=== PATIENT | female | born 1975 | race Caucasian/White ===

== ENCOUNTER → 2020-07-08 15:23 | Outpatient (BNVA) | payer OTHER, SELFPAY | PROVIDERS: PCP Internal Medicine; Visit Provider Anesthesiology | DX: G89.4 Chronic pain syndrome (principal); M47.816 Spondylosis without myelopathy or radiculopathy, lumbar region; M79.7 Fibromyalgia | CPT/HCPCS: 99212 ==

== ENCOUNTER 2020-07-28 07:54 | Outpatient (RCR) | payer OTHER, SELFPAY | END 2020-07-28 23:55 | disposition home or self-care (01) | LOC: HO.PAOS 07:54 | PROVIDERS: Referring Provider Anesthesiology; Visit Provider Counselor Mental Health | DX: F33.2 Major depressive disorder, recurrent severe without psychotic features (principal) | CPT/HCPCS: 90791 ==

== ENCOUNTER → 2020-09-07 12:54 | Outpatient (BNVA) | payer OTHER, SELFPAY | PROVIDERS: PCP Internal Medicine; Visit Provider Orthopaedic Surgery | DX: R20.0 Anesthesia of skin (principal); R20.2 Paresthesia of skin | CPT/HCPCS: 99202 ==

== ENCOUNTER → 2020-09-27 10:58 | Outpatient (BNVA) | payer OTHER, SELFPAY | PROVIDERS: Visit Provider Orthopaedic Surgery | DX: G56.01 Carpal tunnel syndrome, right upper limb (principal) | CPT/HCPCS: 99212 ==

== ENCOUNTER 2020-10-01 06:03 | Day surgery (SDC) | payer OTHER, SELFPAY ==
[2020-09-23 20:01] VITALS: BMI 30.1
--- NOTE | 2020-09-30 10:18 | HO.ANESPROP2 ---
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) Meds Allergies Allergy/AdvReac Type Severity Reaction Status Date / Time gabapentin Allergy Unknown suicidal Verified 10/01/20 06:09 Home Medications Medication Instructions Recorded Confirmed Type fluoxetine 20 mg capsule 40 mg PO DAILY 06/18/20 09/23/20 History ibuprofen 400 mg PO Q6H 09/23/20 09/23/20 History Exam Exam Date and Time: September 30, 2020 1018 Height,Weight and Vital Signs: Height 5 ft 3 in Weight 77.111 kg Pertinent Lab Results Pertinent Lab Results: Laboratory Tests 09/14/20 15:54 WBC 11.2 H Hgb 12.0 Hct 36.1 L Plt Count 381 Assessment and Plan Assessment Anesthesia Assessment: Chart Reviewed Documented by User: Sally East 10/01/20 07:35 [facility] Past Medical History Medical History Anxiety Carpal tunnel syndrome Chronic pain syndrome 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) Meds Allergies Allergy/AdvReac Type Severity Reaction Status Date / Time gabapentin Allergy Unknown suicidal Verified 10/01/20 06:09 Home Medications Medication Instructions Recorded Confirmed Type fluoxetine 20 mg capsule 40 mg PO DAILY 06/18/20 09/23/20 History ibuprofen 400 mg PO Q6H 09/23/20 09/23/20 History Exam Airway Mallampati Class: I TM Dist: >3cm Loose/Missing/Broken Teeth: No Heart: RRR Lungs: CTA Assessment and Plan Assessment Anesthesia Assessment: Anesthesia Plan Discussed and Chart Reviewed Final Anesthetic Review NPO: Yes ASA Class: II Final Preanesthetic Review: Meds/Allgs Chart Reviewed, Consent Obtained/Reviewed and Anes Risks/Benef Reviewed Patient Risk: Low Anesthetic Plan Anesthetic Plan: MAC: Disposition: Standard PACU
--- NOTE | ~2020-10-01 | FL_ITS ---
EXAMINATION: XR FLUOROSCOPY WITH IMAGES CLINICAL INFORMATION: Lumbar spinal cord stimulation trial COMPARISON: None. TECHNIQUE: Fluoroscopy performed by Dr. Gildardo Penn. Fluoroscopy time: 8 minutes DAP: 28 mGycm2 Images: 5 FINDINGS: Images demonstrate leads projecting over the lower thoracic spinal canal. FL/FL guidance in OR IMPRESSION: Fluoroscopy guidance for spinal cord stimulation trial.
[2020-10-01 06:31] VITALS: BP 118/72; PULSE 77; RESP 16; TEMP 36.3; O2SAT 97
[2020-10-01] MEDS: Lactated Ringers 1,000 ML 100 ML IVCONT (06:32)
--- NOTE | 2020-10-01 07:24 | MHC.SHP ---
Pre-Procedural Eval Section A The patient is an INPATIENT: No Changes since office visit: Yes Patient answered all questions The History & Physical has been completed within 30 days and I have reviewed it.: No Section B Chief Complaint: Spondylosis without myelopathy,Chronic Pain Details of Present Illness: as above Relevant Family History (Specify if Yes): No Relevant Social History: None Present Medications: None Medical History: No relevant PMH History of Previous Operations: No relevant previous surgery Allergies: Allergies Allergy/AdvReac Type Severity Reaction Status Date / Time gabapentin Allergy Unknown suicidal Verified 10/01/20 06:09 Review of Systems Sugical H&P ROS: Negative: Cardiovascular, Respiratory, Neurological, Psychiatric, Hem-Onc, Allergic/Immunologic, Gastrointestinal, Genitourinary, Musculoskeletal, Integumentary, Endocrine and Eyes/Ears/Nose/Throat and Yes, Specify: Constitution (obesity) Exam Surgical H&P Exam: Normal: HEENT, Normal: Heart, Normal: Lungs, Normal: Extremities, Normal: Abdomen, Normal: Skin and Normal: Neurological Plan Diagnosis/Plan: Unchanged I have reviewed the history and physical and performed a pertinent physical examination on my patient. No changes have occurred unless specified.
[2020-10-01 09:05] VITALS: BP 106/72; PULSE 73; RESP 14; TEMP 36.1; O2SAT 100
--- NOTE | 2020-10-01 09:05 | P.BOP_ITS ---
Brief Operative Note Date of Service: 10/01/20 Pre-op diagnosis: Spondylosis lumbar spine Post-op diagnosis: same Procedure: Trial of spinal cord stimulator [employer] Implants: Temporary leads 2. Surgeon: Gildardo Penn MD Anesthesia: MAC Estimated blood loss (mL): 10 Pathology: none sent Condition: stable Disposition: PACU
[2020-10-01 09:20] VITALS: BP 101/63; PULSE 58; RESP 18; TEMP 36.3; O2SAT 98
--- NOTE | 2020-10-01 09:44 | PC.NURSE ---
rep at bedside programing patients trial pain stim device. patient awake alert skin pw&d dressing d&i.
--- NOTE | 2020-10-01 12:31 | HO.POSTANES ---
Post Anesthesia Evaluation Post Anesthesia Evaluation Vital Signs: Vital Signs Temp Pulse Resp BP Pulse Ox 10/01/20 09:20 97.3 F 58 18 101/63 98 10/01/20 09:05 97 F 73 14 106/72 100 10/01/20 06:31 97.3 F 77 16 118/72 97 Anesthesia: Monitored Mental Status: Awake Pain Control: Satisfactory Nausea/Vomiting: None Hydration: Adequate Anesthesia-Related Issues: No Anes. Related Issues
--- NOTE | 2020-10-01 14:50 | W.PM.OPN ---
Operative Note Operative Note Date of Service: 10/01/20 Narrative: After obtaining informed consent patient was brought to the operating room, SHE was positioned prone on operating table, [employer] [employer] monitors were applied and patient was deeply sedated. The patient was taken inside of the operating room where she was positioned prone operating table. Time-out was performed delineating correct site, side, the nature of the procedure, patient's allergy, preoperative antibiotic if needed. All operating room staff was participating in OR time-out procedure. Patient's entire back was prepped with ChloraPrep twice and draped with full body fenestrated drape. Sterilely draped C-arm was brought over operating field and sqare picture of T12 L1 L2 vertebrae as were demonstrated on the screen. Attention FIRST was concentrated on the left L1-L2 epidural interspace. The location of the projection of the right pedicle center of the _ L3 vertebra was found on the skin using C-arm. This location was injected with mixture of lidocaine 2% and Marcaine 0.5% 5 cc. After that 11 blade was used to make a charles on the skin. Ten cm 14 gauge curved introducer epidural needle was inserted through the charles and advanced to L1-L2 epidural interspace. The advancement of the needle was performed on anterior posterior and lateral views. Guitar wire and loss of resistance technique were used to locate epidural space. When guitar wire was spread in the epidural fashion, epidural lead was inserted through the skin and it was advanced to T8 position SLIGHTLY RIGHT OF THE MIDLINE. After that location of the projection of the LEFT pedicle center of the L3 vertebra was found on the skin using C-arm. This location was injected with mixture of lidocaine 2% and Marcaine 0.5% 5 cc. After that 11 blade was used to make a charles on the skin. Ten cm 14 gauge curved introducer epidural needle was inserted through the charles and advanced to L1-L2 epidural interspace. The advancement of the needle was performed on anterior posterior and lateral views. Guitar wire and loss of resistance technique were used to locate epidural space. When guitar wire was spread in the epidural fashion, epidural lead was inserted through the needle and advanced to the T8 position slightly left to the midline. At this moment patient was awaken and the epidural leads were connected to the testing device. The patient reported stimulation corresponding to her pain. After satisfactory position of the leads were established the needles were withdrawn, the stylette wires were removed from the epidural leads. The anchoring devices were dislodged on the leads and advanced to the level of the skin. The anchoring devices were sutured with two 0-0 silk sutures to the skin of the patient. The leads were connected to testing device. Bacitracin ointment was applied to the entrance point of bilateral needles. Sterile dressing was applied to the patient's back. The testing device was also glued to the patient's back. Upon completion of the procedure the patient was taken to PACU where SHE recovered and UNEVENTFULLY, SHE WENT HOME WITHOUT IMMEDIATE COMPLICATIONS. Breast [place] Node Biopsy Substrate(s) used for sentinel node biopsy in the non-neoadjuvant setting: [facility]. - Synoptic Notes Breast [place] Node Biopsy Substrate(s) used for sentinel node biopsy in the non-neoadjuvant setting: Shane
== END 2020-10-01 10:51 ==
LOC: HO.SSS 06:04
PROVIDERS: PCP Internal Medicine; Visit Provider Anesthesiology
PROC: (CPT 63650; principal; 2020-10-01 07:30)
DX: M47.816 Spondylosis without myelopathy or radiculopathy, lumbar region (principal); G89.4 Chronic pain syndrome; M79.7 Fibromyalgia; F32.9 Major depressive disorder, single episode, unspecified; I73.00 Raynaud's syndrome without gangrene; Z79.899 Other long term (current) drug therapy; Z88.8 Allergy status to other drugs, medicaments and biological substances
CPT/HCPCS: 63650 ×2; C1778; C1897; J0690; J2250; J3010

== ENCOUNTER → 2020-10-07 11:33 | Outpatient (BNVA) | payer OTHER, SELFPAY | PROVIDERS: PCP Internal Medicine; Visit Provider Anesthesiology | DX: M47.816 Spondylosis without myelopathy or radiculopathy, lumbar region (principal); M47.819 Spondylosis without myelopathy or radiculopathy, site unspecified; M79.7 Fibromyalgia; G89.4 Chronic pain syndrome | CPT/HCPCS: 99212 ==

== ENCOUNTER 2020-10-15 14:27 | Outpatient (REF) | payer OTHER, SELFPAY ==
--- NOTE | ~2020-10-15 | MR_ITS ---
EXAMINATION: MR LUMBAR SPINE WITHOUT CONTRAST CLINICAL INFORMATION: 44-year-old with low back pain and bilateral lumbar radicular symptoms. COMPARISON: 07/01/2018 outside MRI report. Images not currently available. TECHNIQUE: MRI of the lumbar spine was obtained using routine sequences without contrast. FINDINGS: Coronal Alignment:?Normal. Sagittal Alignment:?Normal. Lumbosacral Junction:?Normal. Vertebral Bodies: Normal height. Bone Marrow: No significant bone marrow replacement or bone marrow edema. Conus Medullaris:?Terminates at L1.?Morphology and signal is normal. Intradural Nerve Roots: Within normal limits. L5-S1: Disc space height is well maintained with disc desiccation consistent with disc degenerative change, with minimal type II marrow signal changes along the endplates. There is mild anterolateral spondylosis with a left paravertebral disc osteophyte complex and there is a mild degree of disc bulging slightly asymmetric to the left with a superimposed shallow broad-based central disc protrusion with a central transverse annular fissure. This contacts the right S1 nerve root sleeve without nerve root compression or displacement with no significant thecal sac deformity. There is mild facet hypertrophic change bilaterally and there is [id number] left-sided neural foraminal narrowing without neural impingement. L4-L5: Disc space height and signal are well maintained. There is a tiny inferior foraminal disc protrusion on the left without neural impingement. There is no significant facet arthrosis, canal, or neuroforaminal stenosis. The remaining intervertebral disc space heights and signal are well maintained with no significant disc bulge or herniation and no significant spondylosis, facet arthrosis, canal or neuroforaminal stenosis. Paraspinal/Retroperitoneal: The visualized paravertebral soft tissues appear unremarkable. MR/MR lumbar spine wo con IMPRESSION: 1. Discogenic degenerative changes at L5-S1 with spondylolysis at this level, disc bulging and a central disc protrusion which abuts the right L4 nerve root sleeve. [id number] left-sided neural foraminal narrowing also noted with mild facet arthrosis. 2. Tiny left-sided foraminal disc protrusion at L4-L5 without neural impingement.
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
== END 2020-10-15 14:28 | disposition home or self-care (01) ==
LOC: HO.MRI 14:27
PROVIDERS: Visit Provider Anesthesiology
DX: M47.816 Spondylosis without myelopathy or radiculopathy, lumbar region (principal); M47.819 Spondylosis without myelopathy or radiculopathy, site unspecified
CPT/HCPCS: 72148

== ENCOUNTER → 2020-10-25 09:00 | Outpatient (BNVA) | payer OTHER, SELFPAY | PROVIDERS: PCP Internal Medicine; Visit Provider Nurse Practitioner Family | DX: M47.816 Spondylosis without myelopathy or radiculopathy, lumbar region (principal); M47.819 Spondylosis without myelopathy or radiculopathy, site unspecified | CPT/HCPCS: 99212 ==

== ENCOUNTER → 2020-11-02 09:33 | Outpatient (BNVA) | payer OTHER, SELFPAY | PROVIDERS: PCP Internal Medicine; Visit Provider Physician Assistant | DX: G56.01 Carpal tunnel syndrome, right upper limb (principal) | CPT/HCPCS: 99212 ==

== ENCOUNTER 2020-11-11 13:30 | Day surgery (SDC) | payer OTHER, SELFPAY ==
[2020-11-10 10:00] VITALS: BMI 28.3
[2020-11-11 14:07] VITALS: BP 111/70; PULSE 73; RESP 18; TEMP 36.6; O2SAT 98
--- NOTE | 2020-11-11 15:27 | P.OP_ITS ---
Operative Note Operative Note Date of Service: 11/11/20 Narrative: Preop diagnosis: 1. Right Carpal tunnel syndrome Postop diagnosis: 1. Right Carpal tunnel syndrome Procedure: 1. Right Carpal tunnel release Surgeon: Liliana Still MD Anesthesia: local block using 1% lidocaine with epinephrine Findings: Thickened transverse carpal ligament. EBL: Less than 5 mL Specimens: None Complications: None Disposition: Brought to recovery room in stable condition Plan: Follow-up for 7-10 days for wound check and suture removal Indications: The patient is a 45 years old, with right carpal tunnel syndrome that has been unresponsive to nonoperative management. The risks and benefits of operative treatment including but not limited to risk of damage to blood vessels, nerves, tendons, infection, persistent pain, persistent symptoms, or possible need for additional surgery were discussed with the patient and the patient wishes to proceed with surgery. Procedure: Once consent was obtained a local block was performed using a combination of 1% lidocaine with epinephrine. The patient was then brought back to the operating suite and placed on the operative table in supine position. A tourniquet was applied to the proximal aspect of the right upper extremity and the limb was prepped and draped in a standard surgical fashion. Once assured that we had a good block, a 1.5 cm longitudinal incision was made centered over the right carpal tunnel. The incision was made through the skin to the subcutaneous tissues using a #15 blade. Dissection was made down to the level of the transverse carpal ligament with care being taken to protect the palmar cutaneous nerve. Once the transverse carpal ligament was clearly visualized, a longitudinal incision was made in the transverse carpal ligament 1st using a #15 blade, then using tenotomy scissors under direct visualization. Care was taken to look for and protect the motor branch of the median nerve when seen in this area. Once satisfied with our carpal tunnel release the wound was copiously irr igated with normal saline and hemostasis was obtained with a brief period of local pressure. The skin edges were reapproximated with some 5.0 nylon suture material and a sterile dressing was applied. The patient appears to have tolerated the procedure well and with no complications. All digits were well vascularized at the conclusion of the case.
--- NOTE | 2020-11-11 15:27 | MHC.SHP ---
Pre-Procedural Eval Section B Chief Complaint: carpal tunnel syndrome Allergies: Allergies Allergy/AdvReac Type Severity Reaction Status Date / Time gabapentin Allergy Unknown suicidal Verified 11/11/20 14:24 Plan I have reviewed the history and physical and performed a pertinent physical examination on my patient. No changes have occurred unless specified.
[2020-11-11 16:40] VITALS: BP 108/73; PULSE 64; RESP 18; O2SAT 97
== END 2020-11-11 16:46 | disposition home or self-care (01) ==
PROVIDERS: PCP Internal Medicine; Visit Provider Orthopaedic Surgery
PROC: (CPT 64721; principal; 2020-11-11 14:30)
DX: G56.01 Carpal tunnel syndrome, right upper limb (principal); G89.4 Chronic pain syndrome; M79.7 Fibromyalgia; I73.00 Raynaud's syndrome without gangrene; F32.9 Major depressive disorder, single episode, unspecified; Z88.8 Allergy status to other drugs, medicaments and biological substances
CPT/HCPCS: 64721

== ENCOUNTER → 2020-11-22 08:21 | Outpatient (BNVA) | payer OTHER, SELFPAY | PROVIDERS: PCP Internal Medicine; Visit Provider Orthopaedic Surgery | DX: G56.01 Carpal tunnel syndrome, right upper limb (principal) | CPT/HCPCS: 99212 ==

== ENCOUNTER 2021-03-29 11:40 | Emergency (ER) | payer OTHER, SELFPAY ==
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
[2021-03-29 12:30] VITALS: BP 148/82; PULSE 73; RESP 18; TEMP 36.8; O2SAT 98; BMI 28.3
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
[2021-03-29] MEDS: diazePAM 5 MG TABLET PO (13:30)
== END 2021-03-29 14:37 | disposition home or self-care (01) ==
PROVIDERS: Emergency Provider Emergency Medicine; PCP Internal Medicine
DX: S13.9XXA Sprain of joints and ligaments of unspecified parts of neck, initial encounter (principal); M54.2 Cervicalgia; R40.2410 Glasgow coma scale score 13-15, unspecified time; G44.309 Post-traumatic headache, unspecified, not intractable; V43.52XA Car driver injured in collision with other type car in traffic accident, initial encounter; Y93.9 Activity, unspecified; Y92.410 Unspecified street and highway as the place of occurrence of the external cause; Y99.9 Unspecified external cause status; Z79.899 Other long term (current) drug therapy
CPT/HCPCS: 70450; 72125; 99283

== ENCOUNTER 2021-04-15 14:11 | Outpatient (REF) | payer OTHER, SELFPAY ==
--- NOTE | ~2021-04-15 | MM_ITS ---
EXAMINATION: MM SCREENING DIGITAL BREAST TOMOSYNTHESIS, BILATERAL CLINICAL INFORMATION: Screening. Asymptomatic. The lifetime risk of breast cancer based on the Tyrer-Cuzick Model is 8%. COMPARISON: Mammography: 06/28/2018; targeted right breast ultrasound 07/04/2018 TECHNIQUE: Digital breast tomosynthesis is performed in both the craniocaudal and mediolateral oblique views along with computer-aided detection (CAD). Synthesized 2D images are generated from the tomosynthesis. FINDINGS: The breasts are heterogeneously dense, which may obscure small masses (ACR BI-RADS breast composition Category c). There are no significant masses, abnormal calcifications, or other abnormalities. There is a known cyst posterior upper outer right breast which is increased in size, currently approximately 1.8 x 1.4 cm compared with prior measurements 1.1 x 0.8 cm. The axilla and skin contours are unremarkable. There are no significant changes. MM/MM tomosynthesis screening BI IMPRESSION: 1. No mammographic evidence of malignancy. 2. Simple cyst posterior outer right breast increased in size since prior exam 2017. ASSESSMENT: BI-RADS 2: Benign RECOMMENDATION: Routine annual mammography screening. This patient's information was entered into a reminder system with a target due date for their next mammogram.
== END 2021-04-15 14:12 | disposition home or self-care (01) ==
LOC: HO.MAMMO 14:11
PROVIDERS: Visit Provider Internal Medicine
DX: Z12.31 Encounter for screening mammogram for malignant neoplasm of breast (principal)
CPT/HCPCS: 77063; 77067

== ENCOUNTER → 2021-04-20 14:55 | Outpatient (BNVA) | payer OTHER, SELFPAY | PROVIDERS: PCP Internal Medicine; Visit Provider Orthopaedic Surgery | DX: G56.01 Carpal tunnel syndrome, right upper limb (principal); M79.7 Fibromyalgia; M79.641 Pain in right hand; R20.0 Anesthesia of skin; R20.2 Paresthesia of skin | CPT/HCPCS: 99212 ==

== ENCOUNTER 2021-05-03 10:31 | Outpatient (REF) | payer OTHER, SELFPAY ==
--- NOTE | ~2021-05-03 | XR_ITS ---
EXAMINATION: XR KNEE, RIGHT CLINICAL INFORMATION: S89.91XA - Unspecified injury of right lower leg COMPARISON: None TECHNIQUE: Four views of the right knee. FINDINGS: There is no fracture or dislocation. No suprapatellar effusion. Hoffa's fat pad appears normal. There is no joint narrowing or erosive change. Bony mineralization is normal. No periostitis. XR/XR knee RT 4V IMPRESSION: Normal right knee.
== END 2021-05-03 10:32 | disposition home or self-care (01) ==
LOC: HO.HMGCX 10:31
PROVIDERS: PCP Internal Medicine; Visit Provider Internal Medicine
DX: Z13.89 Encounter for screening for other disorder (principal)
CPT/HCPCS: 73564

== ENCOUNTER 2021-06-28 13:12 | Outpatient (REF) | payer OTHER, SELFPAY ==
[2021-06-28 14:09] LABS: Hematocrit 35.7 % (37.0-47.0); Hemoglobin 11.8 g/dl (12.0-16.0); Mean Corpuscular HGB Conc 33.1 g/dl (31.0-35.0); Mean Corpuscular Hemoglobin 30.3 pg (27.0-33.0); Mean Corpuscular Volume 91.8 fL (80.0-98.0); Mean Platelet Volume 10.7 fL (9.4-12.3); Platelet Count 374 X10*3/uL (160-400); Red Blood Count 3.89 X10*6/uL (4.20-5.50); Red Cell Distribution Width 14.5 % (11.0-16.0); White Blood Count 10.9 X10*3/uL (4.8-10.8)
[2021-06-28 15:11] LABS: HCG Quantitative < 2 mIU/mL; TSH reflex Free T4 1.19 uIU/mL (0.32-4.0)
[2021-06-29 13:37] LABS: CT PCR NOT DETECTED (Not Detect.); NG PCR NOT DETECTED (Not Detect.)
[2021-07-01 02:17] LABS: HPV mRNA E6/E7 rflx Not Detected (Not Detected)
== END 2021-06-28 13:13 | disposition home or self-care (01) ==
LOC: HO.LAB 13:12
PROVIDERS: PCP Internal Medicine; Visit Provider Obstetrics & Gynecology
DX: N93.9 Abnormal uterine and vaginal bleeding, unspecified (principal); Z11.51 Encounter for screening for human papillomavirus (HPV)
CPT/HCPCS: 36415; 84443; 84702; 85027; 87491; 87591; 87624; 88142; 99202

== ENCOUNTER 2021-07-07 13:00 | Outpatient (RCR) | payer OTHER, SELFPAY ==
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
--- NOTE | 2021-07-08 11:38 | MHC.OT.DC ---
[address] [phone] F: [phone] Occupational Therapy Discharge Note Provider: Liliana Still Diagnosis: CARPAL TUNNEL SYNDROME, RIGHT UPPER LIMB Date of Surgery: 11/11/20 Date of Evaluation: 06/09/21 Date of Discharge: 07/07/21 Treatments to Date: 9 Cancellations to Date: No Shows to Date: Discharge Status: Patient Elected to Stop Recommend MD Follow-up Discharge Summary: Pt reports temporary improvement in pain with heat and massage only. Pt has been educated on gentle ther ex with plan for ex progression Reports she is reluctant to exercise due to fear of increased pain and does not plan to schedule further therapy No change noted. Electronically Signed By: Trang Barnard OT CHT CLT Reviewed/agree with student documentation: N/A Therapist: Please Sign and return to therapist, thank you for your referral.
== END 2021-07-08 11:30 | disposition home or self-care (01) ==
LOC: HO.OT 13:00
PROVIDERS: PCP Internal Medicine; Visit Provider Orthopaedic Surgery
DX: R20.0 Anesthesia of skin (principal); R20.2 Paresthesia of skin; G56.01 Carpal tunnel syndrome, right upper limb
CPT/HCPCS: 97035; 97110; 97140; 97166

== ENCOUNTER 2021-07-07 13:45 | Outpatient (REF) | payer OTHER, SELFPAY ==
--- NOTE | ~2021-07-07 | US_ITS ---
EXAMINATION: US PELVIS CLINICAL INFORMATION: Abnormal uterine and vaginal bleeding. COMPARISON: None TECHNIQUE: Ultrasound of the pelvis is performed using both transabdominal and transvaginal transducers along with Doppler. Transvaginal imaging is performed due to inadequate visualization transabdominally. FINDINGS: Uterus: The uterus is anteverted and measures 8.5 x 3.9 x 4.9 cm. The double wall endometrial thickness is 1 mm. The uterus is smooth in contour. There are several small cysts adjacent to the endometrium, the largest measuring 4 x 2 x 2 mm. There is a solitary 2 mm echogenic focus questionable for a calcification. No visible fibroid. There are nabothian cysts in the cervix. Adnexa: Both ovaries are visualized. There is normal color flow to the adnexa. There is no ovarian torsion. There is no pelvic ascites or fluid collection. Right ovary measures 2.3 x 2 x 2.1 cm. There is a small nonspecific echogenic focus that measures 6 x 4 x 5 mm. Left ovary measures 3.1 x 2.6 x 2.2 cm. US/US pelvic and transvaginal IMPRESSION: Normal-thickness endometrium. Small myometrial cysts adjacent to the endometrium which can be seen with adenomyosis. No visible fibroid seen.
== END 2021-07-07 13:46 | disposition home or self-care (01) ==
LOC: HO.US 13:45
PROVIDERS: Visit Provider Obstetrics & Gynecology
DX: N93.9 Abnormal uterine and vaginal bleeding, unspecified (principal)
CPT/HCPCS: 76830; 76856

== ENCOUNTER 2021-08-11 12:30 | Outpatient (REF) | payer OTHER, SELFPAY | END 2021-08-11 12:31 | disposition home or self-care (01) | LOC: HO.LAB 12:30 | PROVIDERS: Visit Provider Obstetrics & Gynecology | DX: N93.9 Abnormal uterine and vaginal bleeding, unspecified (principal) | CPT/HCPCS: 58100; 88305 ==

== ENCOUNTER 2021-08-18 10:20 | Outpatient (REF) | payer OTHER, SELFPAY ==
--- NOTE | 2021-08-18 | EMG_ITS ---
Bilateral median and ulnar motor and sensory studies were performed. Bilateral radial sensory studies were performed and paraspinal muscles were tested. IMPRESSION: [id number] right and mild left median neuropathy across carpal tunnel. MD MARILOU Cotton/JESSIE / [id number]
== END 2021-08-18 10:21 | disposition home or self-care (01) ==
LOC: HO.NEURO 10:20
PROVIDERS: Visit Provider Orthopaedic Surgery
DX: R20.2 Paresthesia of skin (principal); R20.0 Anesthesia of skin; G56.13 Other lesions of median nerve, bilateral upper limbs
CPT/HCPCS: 95886; 95911

== ENCOUNTER → 2021-09-01 10:17 | Outpatient (BNVA) | payer OTHER, SELFPAY | PROVIDERS: Visit Provider Obstetrics & Gynecology ==

== ENCOUNTER → 2021-09-27 15:08 | Outpatient (BNVA) | payer OTHER, SELFPAY | PROVIDERS: Visit Provider Obstetrics & Gynecology | DX: N93.9 Abnormal uterine and vaginal bleeding, unspecified (principal) | CPT/HCPCS: 99212 ==

== ENCOUNTER 2021-09-30 11:25 | Day surgery (SDC) | payer OTHER, SELFPAY ==
--- NOTE | 2021-09-29 10:23 | P.CONAN_ITS ---
Documented by User: Rhonda Moreno NP 09/29/21 10:24 HPI - Anesthesia Eval Consult details Narrative: 45yo F for Uterine Ablation w/Novasure PMFSH Active Problems Active Problems: All Active Problems (Updated 06/28/21 @ 13:37 by Conrado Valentin MD) Carpal tunnel syndrome of right wrist (Acute) Lumbar facet arthropathy (Acute) Numbness and tingling of right upper extremity (Acute) Right hand pain (Acute) Right knee injury (Acute) Dysfunctional uterine bleeding (Acute) Neuralgia (Acute) Abnormal uterine bleeding (AUB) (Acute) Leucocytosis (Chronic) Chronic pain syndrome (Acute) Fibromyalgia (Acute) Spondylosis without myelopathy or radiculopathy (Acute) Degenerative joint disease (DJD) of lumbar spine (Acute) Paresthesias in right hand (Acute) Depression, major, severe recurrence (Acute) Past Medical History Medical History Anxiety Carpal tunnel syndrome Chronic pain syndrome 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, major, severe recurrence Fibromyalgia Leucocytosis Numbness and tingling in both hands Panic attack Paresthesias in right hand Raynaud disease Spondylosis without myelopathy or radiculopathy Family History Family History Mother Mental health disorder Substance use disorder Surgical History Surgical History History of breast lump removal History of carpal tunnel surgery of right wrist History of tubal ligation Social History Social History Household Members: Spouse Housing: House Alcohol intake: never Patient Tobacco Use Status: Former Tobacco user Quit Date: 2019 Years Smoked: 30 years Patient Interested in Nicotine Replacement: No Second Hand Smoke Exposure: No Use of substances other than those prescribed or required for medical reasons: No Are you DNR?: No Advance Directives: No Advance Directives Information Provided: No Patient : No (hx tubal) Current occupational status: unemployed and disabled 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) Meds Allergies Allergy/AdvReac Type Severity Reaction Status Date / Time gabapentin Allergy Unknown suicidal Verified 09/30/21 11:58 Home Medications Medication Instructions Recorded Confirmed Last Taken Type ibuprofen 400 mg 400 mg PO Q6H 09/23/20 09/26/21 Unknown History tablet PRN acetaminophen 325 650 mg PO Q6H 10/25/20 09/26/21 Unknown History mg capsule PRN (Tylenol) Exam Exam Date and Time: September 29, 2021 1023 Pertinent Lab Results Pertinent Lab Results: Laboratory Tests 06/28/21 13:56 WBC 10.9 H Hgb 11.8 L Hct 35.7 L Plt Count 374 Assessment and Plan Assessment Anesthesia Assessment: Chart Reviewed Documented by User: Marla Perkins MD 09/30/21 12:07 PMFSH Past Medical History Medical History Anxiety Carpal tunnel syndrome Chronic pain syndrome 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, major, severe recurrence Fibromyalgia Leucocytosis Numbness and tingling in both hands Panic attack Paresthesias in right hand Raynaud disease Spondylosis without myelopathy or radiculopathy Family History Family History Mother Mental health disorder Substance use disorder Family history of problems with anesthesia: No Surgical History Surgical History History of breast lump removal History of carpal tunnel surgery of right wrist History of tubal ligation History of Problems with Anesthesia: No Social History Social History Household Members: Spouse Housing: House Alcohol intake: never Patient Tobacco Use Status: Former Tobacco user Quit Date: 2018 Years Smoked: 30 years Patient Interested in Nicotine Replacement: No Second Hand Smoke Exposure: No Use of substances other than those prescribed or required for medical reasons: No Are you DNR?: No Advance Directives: No Advance Directives Information Provided: No Patient : No (hx tubal) Current occupational status: unemployed and disabled 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) Meds Allergies Allergy/AdvReac Type Severity Reaction Status Date / Time gabapentin Allergy Unknown suicidal Verified 09/30/21 11:58 Home Medications Medication Instructions Recorded Confirmed Last Taken Type ibuprofen 400 mg 400 mg PO Q6H 09/23/20 09/26/21 Unknown History tablet PRN acetaminophen 325 650 mg PO Q6H 10/25/20 09/26/21 Unknown History mg capsule PRN (Tylenol) Exam Airway Mallampati Class: II TM Dist: >3cm Neck ROM: Full Assessment and Plan Assessment Anesthesia Assessment: Anesthesia Plan Discussed Final Anesthetic Review Family History of Problems with Anesthesia: No History of Problems with Anesthesia: No NPO: Yes ASA Class: II Final Preanesthetic Review: No Changes in Pt Med Stat, Meds/Allgs Chart Reviewed, Consent Obtained/Reviewed and Anes Risks/Benef Reviewed Patient Risk: Intermediate Procedure Risk: Low Anesthetic Plan Anesthetic Plan: GA Disposition: Standard PACU
[2021-09-30] VITALS (9 sets, daily range): BP systolic 98–145; BP diastolic 43–83; PULSE 58–89; RESP 17–20; TEMP 36.4–36.6; O2SAT 97–100; BMI 28.3
[2021-09-30 11:46] LABS: UPreg QC Valid YES; Urine Pregnancy NEGATIVE (NEGATIVE)
[2021-09-30] MEDS: Lactated Ringers 1,000 ML 100 ML IVCONT (12:01)
--- NOTE | 2021-09-30 12:48 | MHC.SHP ---
Pre-Procedural Eval Section A Date of Service: 09/30/21 The patient is an INPATIENT: No Changes since office visit: No Cold of Flu in the past 2 weeks, No New Medical Problems, No Changes in Medication and No Patient answered all questions The History & Physical has been completed within 30 days and I have reviewed it.: Yes Section B Chief Complaint: abnormal bleeding Allergies: Allergies Allergy/AdvReac Type Severity Reaction Status Date / Time gabapentin Allergy Unknown suicidal Verified 09/30/21 11:58 Plan Diagnosis/Plan: Unchanged I have reviewed the history and physical and performed a pertinent physical examination on my patient. No changes have occurred unless specified.
--- NOTE | 2021-09-30 14:08 | PM.OP ---
Brief Operative Note Date of Service: 09/30/21 Pre-op diagnosis: Abnormal uterine bleeding Post-op diagnosis: same Procedure: NovaSure Endometrial Ablation Surgeon: Conrado Valentin MD Anesthesia: MAC Was an Chief Steward/Stewardess used for this Procedure?: No Estimated blood loss (mL): 0 Pathology: none sent Condition: stable Disposition: PACU
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
[2021-09-30] MEDS: fentaNYL citrate/PF 100 MCG/2 ML VIAL 50 MCG IVPUSH (14:20)
[2021-09-30] MEDS: Acetaminophen 325 MG TABLET 650 MG PO (14:21)
[2021-09-30] MEDS: oxyCODONE HCl Immed Release 5 MG TABLET PO (14:21)
== END 2021-09-30 16:02 | disposition home or self-care (01) ==
PROVIDERS: Visit Provider Obstetrics & Gynecology
PROC: (CPT 58353; principal; 2021-09-30 13:20)
DX: N93.9 Abnormal uterine and vaginal bleeding, unspecified (principal); Z98.51 Tubal ligation status; G89.4 Chronic pain syndrome; M79.7 Fibromyalgia; I73.00 Raynaud's syndrome without gangrene; F33.2 Major depressive disorder, recurrent severe without psychotic features; M51.36 Other intervertebral disc degeneration, lumbar region; D72.829 Elevated white blood cell count, unspecified; Z79.899 Other long term (current) drug therapy; Z88.8 Allergy status to other drugs, medicaments and biological substances; Z87.891 Personal history of nicotine dependence
CPT/HCPCS: 58353; 81025; J1100; J2250; J2405; J3010

== ENCOUNTER → 2021-10-19 10:37 | Outpatient (BNVA) | payer OTHER, SELFPAY | PROVIDERS: PCP Internal Medicine; Visit Provider Obstetrics & Gynecology ==

== ENCOUNTER 2022-02-28 09:08 | Outpatient (REF) | payer MEDICARE, MEDICAID, SELFPAY ==
[2022-02-28 10:53] LABS: Hematocrit 39.1 % (37.0-47.0); Hemoglobin 12.9 g/dl (12.0-16.0); Mean Corpuscular Hemoglobin 30.5 pg (27.0-33.0); Mean Corpuscular Volume 92.4 fL (80.0-98.0); Mean Platelet Volume 11.4 fL (9.4-12.3); Platelet Count 374 X10*3/uL (160-400); Red Blood Count 4.23 X10*6/uL (4.20-5.50); Red Cell Distribution Width 13.8 % (11.0-16.0); White Blood Count 13.2 X10*3/uL (4.8-10.8)
== END 2022-02-28 09:09 | disposition home or self-care (01) ==
LOC: HO.LAB 09:08
PROVIDERS: PCP Internal Medicine; Visit Provider Obstetrics & Gynecology
DX: N93.9 Abnormal uterine and vaginal bleeding, unspecified (principal)
CPT/HCPCS: 36415; 85027; 99212

== ENCOUNTER → 2022-05-17 10:35 | Outpatient (BNVA) | payer MEDICARE, MEDICAID, SELFPAY | PROVIDERS: PCP Internal Medicine; Visit Provider Physician Assistant | DX: G56.01 Carpal tunnel syndrome, right upper limb (principal) | CPT/HCPCS: 20550; 99212; J1100 ==

== ENCOUNTER 2022-11-16 15:19 | Outpatient (REF) | payer MEDICARE, MEDICAID, SELFPAY ==
--- NOTE | ~2022-11-16 | MM_ITS ---
EXAMINATION: MM SCREENING DIGITAL BREAST TOMOSYNTHESIS, BILATERAL CLINICAL INFORMATION: Screening. Asymptomatic. The lifetime risk of breast cancer based on the Tyrer-Cuzick Model is 7.1%. COMPARISON: Mammography: 04/15/2021 and studies dating back to 06/28/2018. TECHNIQUE: Digital breast tomosynthesis is performed in both the craniocaudal and mediolateral oblique views along with computer-aided detection (CAD). Synthesized 2D images are generated from the tomosynthesis. FINDINGS: The breasts are extremely dense, which lowers the sensitivity of mammography (ACR BI-RADS breast composition Category d). There is waxing and waning of circumscribed densities bilaterally consistent with cysts as had been shown on ultrasound study of 07/04/2018. On craniocaudal view of the right breast about the deep lateral aspect there is a 6 x 5 mm density with question lobular borders for which spot compression film is recommended. I do not definitely see a correlate on mediolateral oblique study. MM/MM tomosynthesis screening BI IMPRESSION: Right breast density for further evaluation as described. ASSESSMENT: BI-RADS 0: Incomplete - Need Additional Imaging Evaluation RECOMMENDATION: 1. Additional views of the right breast. 2. Targeted ultrasound if warranted after review of the additional views. 3. Radiology department staff will contact the patient for additional imaging. This patient's information was entered into a reminder system with a target due date for their next mammogram.
== END 2022-11-16 15:20 | disposition home or self-care (01) ==
LOC: HO.MAMMO 15:19
PROVIDERS: PCP Internal Medicine; Visit Provider Internal Medicine
DX: Z12.31 Encounter for screening mammogram for malignant neoplasm of breast (principal)
CPT/HCPCS: 77063; 77067

== ENCOUNTER 2022-12-06 12:54 | Outpatient (REF) | payer MEDICARE, MEDICAID, SELFPAY ==
--- NOTE | ~2022-12-06 | MM_ITS ---
EXAMINATION: MM EXAMINATION: EXAMINATION: MM DIAGNOSTIC DIGITAL BREAST TOMOSYNTHESIS, RIGHT US DIAGNOSTIC ULTRASOUND BREAST, RIGHT CLINICAL INFORMATION: Recall from screening for question of small nodular asymmetry 7:00 right breast on CC tomography without MLO correlate and for evaluation right axilla. COMPARISON: Prior mammography exams including most recent screening mammography 11/16/2022. TECHNIQUE: Digital breast tomosynthesis is performed. 2D images are generated from the tomosynthesis. The following views are obtained: Spot right CC, right ML. Ultrasound right breast is targeted to the inferior breast and the right axilla. Grayscale imaging and color Doppler are performed without and with harmonics. FINDINGS: The breasts are heterogeneously dense, which may obscure small masses (ACR BI-RADS breast composition Category c). The additional views demonstrate fibrocystic and fibronodular parenchymal pattern similar to prior studies. There is no additional new nodular asymmetric density or architectural abnormality in the area for recall. Ultrasound lower right breast demonstrates scattered cysts of varying size, largest approximately 2.3 cm, many are under 1 cm. There is no solid mass or architectural abnormality. Ultrasound right axilla demonstrates scattered normal-appearing nodes with normal leon architecture and color flow. No lymphadenopathy. Results are discussed with the patient at time of visit. MM/MM tomosynthesis added views R IMPRESSION: -No persistent asymmetric density. No ultrasound correlate. -No lymphadenopathy right axilla. ASSESSMENT: BI-RADS 2: Benign RECOMMENDATION: Routine annual mammography screening. This patient's information was entered into a reminder system with a target due date for their next mammogram.
== END 2022-12-06 12:55 | disposition home or self-care (01) ==
LOC: HO.MAMMO 12:54
PROVIDERS: PCP Internal Medicine; Visit Provider Internal Medicine
DX: N64.89 Other specified disorders of breast (principal)
CPT/HCPCS: 76642; 77061; 77065

== ENCOUNTER 2023-03-28 10:50 | Outpatient (AMB) | payer MEDICARE, MEDICAID, SELFPAY ==
[2023-03-28 10:56] VITALS: BP 132/84; PULSE 98; O2SAT 98; BMI 33.3
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
== END 2023-03-28 12:04 | disposition home or self-care (01) ==
PROVIDERS: Visit Provider Internal Medicine
DX: Z00.00 Encounter for general adult medical examination without abnormal findings (principal); F33.2 Major depressive disorder, recurrent severe without psychotic features; F41.0 Panic disorder [episodic paroxysmal anxiety]; F41.9 Anxiety disorder, unspecified
CPT/HCPCS: 1123F; G0438

== ENCOUNTER 2023-03-28 11:14 | Outpatient (AMB) | payer OTHER, MEDICARE, MEDICAID, SELFPAY ==
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
== END 2023-03-28 12:03 | disposition home or self-care (01) ==
LOC: HO.HMGC 11:15
PROVIDERS: PCP Internal Medicine; Visit Provider Internal Medicine
DX: M54.2 Cervicalgia (principal); V89.2XXA Person injured in unspecified motor-vehicle accident, traffic, initial encounter; S16.1XXA Strain of muscle, fascia and tendon at neck level, initial encounter; R07.89 Other chest pain; S06.0XAA Concussion with loss of consciousness status unknown, initial encounter; R51.9 Headache, unspecified
CPT/HCPCS: 99214

== ENCOUNTER 2023-04-05 13:08 | Outpatient (REF) | payer MEDICARE, MEDICAID, SELFPAY ==
[2023-04-05 16:08] LABS: MANUAL DIFF FLAG NO
[2023-04-05 16:28] LABS: Basophils Absolute Auto 0.1 X10*3/uL (0.0-0.2); Basophils Percent Auto 0.6 % (0-2); Eosinophils Absolute Auto 0.2 X10*3/uL (0.0-0.4); Eosinophils Percent Auto 1.6 % (0-4); Hematocrit 40.2 % (37.0-47.0); Hemoglobin 13.1 g/dl (12.0-16.0); Imm Gran Abs Auto 0.03 X10*3/uL (0.00-0.03); Imm Gran Pct Auto 0.3 % (0.0-0.4); Lymphocytes Absolute Auto 4.6 X10*3/uL (1.2-4.9); Mean Corpuscular HGB Conc 32.6 g/dl (31.0-35.0); Mean Corpuscular Hemoglobin 30.5 pg (27.0-33.0); Mean Corpuscular Volume 93.5 fL (80.0-98.0); Monocytes Absolute Auto 0.6 X10*3/uL (0.1-1.2); Monocytes Percent Auto 6.9 % (2-11); Neutrophils Absolute Auto 3.9 x10*3/uL (2.0-8.3); Neutrophils Percent Auto 41.6 % (45-73); Platelet Count 448 X10*3/uL (160-400); Red Cell Distribution Width 13.7 % (11.0-16.0); White Blood Count 9.3 X10*3/uL (4.8-10.8)
[2023-04-05 16:48] LABS: Alanine Aminotransferase 18 U/L (0-31); Alkaline Phosphatase 70 U/L (39-117); Anion Gap 11 (12-20); Aspartate Amino Transferase 18 U/L (5-31); Bilirubin Total 0.2 mg/dL (0.0-1.0); Blood Urea Nitrogen 7 mg/dL (9-16); Calcium 9.8 mg/dL (8.4-10.2); Carbon Dioxide 26 mmol/L (22-29); Chloride 109 mmol/L (96-108); Cholesterol 204 mg/dL; Estimated Glomerular Filt Rate > 60; Glucose Fasting 85 mg/dL (60-99); HDL Cholesterol 39 mg/dL; LDL Cholesterol Calculated 110 mg/dl; Potassium 4.5 mmol/L (3.3-5.1); Sodium 141 mmol/L (135-145); Total Protein 7.3 g/dL (6.5-8.0); Triglycerides 279 mg/dL
== END 2023-04-05 13:09 | disposition home or self-care (01) ==
LOC: HO.HMGCLDS 13:08
PROVIDERS: PCP Internal Medicine; Visit Provider Internal Medicine
DX: E66.09 Other obesity due to excess calories (principal); F33.2 Major depressive disorder, recurrent severe without psychotic features; F41.0 Panic disorder [episodic paroxysmal anxiety]; F41.9 Anxiety disorder, unspecified
CPT/HCPCS: 36415; 80053; 80061; 84443; 85025

== ENCOUNTER 2023-04-11 11:30 | Outpatient (AMB) | payer MEDICARE, MEDICAID, SELFPAY ==
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
[2023-04-11 11:39] VITALS: BP 132/84; PULSE 94; O2SAT 97; BMI 33.4
== END 2023-04-11 13:16 | disposition home or self-care (01) ==
PROVIDERS: PCP Internal Medicine; Visit Provider Internal Medicine
DX: S16.1XXA Strain of muscle, fascia and tendon at neck level, initial encounter (principal); V89.2XXA Person injured in unspecified motor-vehicle accident, traffic, initial encounter
CPT/HCPCS: 99213

== ENCOUNTER 2023-04-24 14:07 | Outpatient (AMB) | payer MEDICARE, MEDICAID, SELFPAY ==
[2023-04-24 14:11] VITALS: BP 126/74; PULSE 94; O2SAT 98; BMI 33.1
--- NOTE | 2023-04-24 14:11 | A.OFFPC_ITS ---
Vital Signs 04/24/23 14:11 Height 5 ft 3 in Weight 187 lb BMI 33.1 BP 126/74 Blood Pressure Location Rt brachial Position Sitting Pulse 94 Pulse Source Pulse Oximeter Pulse Oximetry (%) 98 Oxygen Delivery Method Room Air Intake Visit Reasons: Dicuss CT Scan of Lungs Allergies gabapentin Allergy (Unknown, Verified 04/24/23 14:11) suicidal fentanyl Adverse Reaction (Intermediate, Verified 04/24/23 14:11) EXCESSIVE SWEATING Medication List - Last Reconciled 04/24/23 by Sissy Moncada MD acetaminophen (Tylenol) 650 mg PO Q6H PRN alprazolam 0.5 mg PO DAILY PRN 30 days cyclobenzaprine 5 mg PO TID 30 days ferrous sulfate 325 mg PO DAILY multivitamin 1 tab PO DAILY quetiapine orally 2 times a day; 2 tablets at night and 1 in the morning 90 days Tobacco use date assessed: 04/24/23 Dental Screening Dental Screen Date: 04/24/23 Did you have a dental visit in the last 12 months?: Yes Did you have a dental problem in the last 6 months where you did not have access to dental care?: No Was dental information given to patient?: No HPI Dicuss CT Scan of Lungs HPI Details Patient had a CT scan chest when she presented to emergency room [facility] 03/22/2023 which found incidental lymph node on right side apical and at the bases 5 in total with size of 4 mm She has an appointment with evaluation specialist coming up for evaluation CT scan also showed moderate emphysema patient does have a history of smoking since the age of 16 she stopped smoking 5 years ago. She does complain of shortness of breath with exertion specially climbing the stairs. On examination today her lungs are clear to auscultation there is no wheezing. Pulse ox is 98 on room air. 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, major, severe recurrence Fibromyalgia Leucocytosis Numbness and tingling in both hands Panic attack Paresthesias in right hand Raynaud disease Restless leg syndrome Spondylosis without myelopathy or radiculopathy Surgical History History of breast lump removal History of carpal tunnel surgery of right wrist History of endometrial ablation History of tubal ligation Family History Mother Mental health disorder Substance use disorder Social History Household Members: Spouse Housing: House Are you a primary nurse care manager to a significant other at home: No Do you presently have visiting nurse or other home services: No Alcohol intake: never Patient Tobacco Use Status: Former Tobacco user Quit Date: 2019 Years Smoked: 30 years e-Cigarette/Vaping Use: Never Used Second Hand Smoke Exposure: No service: No Current occupational status: unemployed and disabled 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 1. Little interest or pleasure in doing things: more than half the days 2. Feeling down, depressed, or hopeless: more than half the days 3. Trouble falling or staying asleep, or sleeping too much: nearly every day 4. Feeling tired or having little energy: nearly every day 5. Poor appetite or overeating: several days 6. Feeling bad about yourself - or that you are a failure or have let yourself or your family down: more than half the days 7. Trouble concentrating on things, such as reading the newspaper or watching television: more than half the days 8. Moving or speaking so slowly that other people could have noticed. Or the opposite - being so fidgety or restless that you have been moving around a lot more than usual: more than half the days 9. Thoughts that you would be better off or of hurting yourself in some way: more than half the days Total score: 19 Depression Screening Interpretation: Positive 53973 - PHQ-9 Billing: Yes Source: Developed by Drs. Keith Osman, Domenica Jimenez, Stephen Veliz and colleagues, with an educational gregg from [employer]. Thrive Questionnaire Date Thrive assessed: 04/24/23 I am a: Patient What is your living situation today?: I have a steady place to live Within the past 12 months, did the food you bought not last and you didn't have the money to get more?: Sometimes True Within the past 12 months, did you worry whether your food would run out before you got money to buy more?: Sometimes True Do you have trouble paying for medicines?: No Do you have trouble getting transportation to medical appointments?: No Do you have trouble paying your heating and electricity bill?: Yes Do you have trouble taking care of your child, family member or friend?: Yes Do you have trouble with day-to-day activities such as bathing, preparing meals, shopping, managing finances, etc.?: Yes Are you interested in more education?: No Please select the resources that you would like help with: Housing/Retirement AUDIT C Alcohol Use Questionnaire (AUDIT-C) 1. How often do you have a drink containing alcohol?: Never 3. How often do you have six or more drinks on one occasion?: Never Total Score: 0 Score Reviewed/Action Taken: Yes CIRO-7 AMB Questionnaire CIRO-7 Date CIRO - 7 assessed: 04/24/23 Feeling nervous, anxious, or on edge: 3 = Nearly every day Not being able to stop or control worryin = Nearly every day Worrying too much about different things: 3 = Nearly every day Trouble relaxin = Nearly every day Being so restless that it is hard to sit still: 3 = Nearly every day Becoming easily annoyed or irritable: 3 = Nearly every day Feeling afraid as if something awful might happen: 3 = Nearly every day Total CIRO-7 score (0-4 normal; 5-9 mild; 10-14 moderate; 15-21 severe): 21 Source: Developed by Drs. Keith Osman, Domenica Jimenez, Stephen Veliz and colleagues, with an educational gregg from [employer]. CIRO-7 Assessment Billing CIRO-7 Assessment Tool: CIRO-7 Assessment 45578 Review of Systems Const Denies chills and Denies fever(s) ENT Denies epistaxis and Denies nasal discharge Card Denies chest pain Resp Denies chest congestion, Denies cough and Denies hemoptysis GI Denies diarrhea and Denies nausea Skin/Breast Denies rash Neuro Reports no additional complaints Psych Reports no additional complaints Endo Reports no additional complaints Physical exam (Primary Care) Vital Signs: Last Vital Signs Pulse 94 08/29/23 14:11 BP 126/74 04/24/23 14:11 Pulse Ox 98 04/24/23 14:11 Oxygen Delivery Method Room Air 04/24/23 14:11 BMI result Body Mass Index 33.1 Tobacco/Smoking Status: Tobacco use Status Tobacco use date assessed 04/24/23 04/24/23 14:12 Patient Tobacco Use Status Former Tobacco user 04/24/23 14:12 e-Cigarette/Vaping Use Never Used 04/24/23 14:12 PHQ-9: PHQ-9 Score PHQ-9: Total score 19 04/24/23 14:56 Depression Screening Interpretation: Positive Thrive Assessment: Date of Thrive Assessment Date Thrive assessed 04/24/23 04/24/23 14:56 Const General: cooperative, comfortable and no acute distress Orientation/consciousness: patient oriented x3 HENMT Head: Yes normocephalic Eyes General: appearance normal, both eyes and all related structures Neck Neck: Yes supple Resp Effort & Inspection: normal respiratory effort, no cough and no stridor Cardio Rhythm: regular rhythm Heart sounds: S1 normal heart sound present and S2 normal heart sound present Skin General skin exam: turgor normal Neuro General: patient oriented x3, tone normal and moves all extremities Extrem Right lower extremity: no edema Left lower extremity: no edema Assessment and Plan Assessment & Plan (1) Multiple nodules of lung: Code(s): R91.8 - Other nonspecific abnormal finding of lung field (2) Emphysema lung: Code(s): J43.9 - Emphysema, unspecified Qualifiers: Emphysema type: centrilobular Qualified Code(s): J43.2 - Centrilobular emphysema (3) Ex-smoker: Code(s): Z87.891 - Personal history of nicotine dependence (4) Shortness of breath on exertion: Code(s): R06.02 - Shortness of breath Plan Patient had a CT scan chest when she presented to emergency room [facility] 03/22/2023 which found incidental lymph node on right side apical and at the bases 5 in total with size of 4 mm We received a call by few days ago was very upset that while on be doing anything for the nodules. We tried to explain to him the size of nodule does not warrant anything urgent. She should wait for Pulmonary appointment I printed literature today to educate the patient and explained to her the recommendation as per size of nodule She does have a risk factor of smoking for that she will be evaluated further by the specialist. She has an appointment with evaluation specialist coming up for evaluation CT scan also showed moderate emphysema patient does have a history of smoking since the age of 16 she stopped smoking 5 years ago. She does complain of shortness of breath with exertion specially climbing the stairs. On examination today her lungs are clear to auscultation there is no wheezing. Pulse ox is 98 on room air. Coding Level of Care Code Est Pt Level 4 (56671) Diagnoses Multiple nodules of lung R91.8 Emphysema lung J43.2 Emphysema type: centrilobular Ex-smoker Z87.891 Shortness of breath on exertion R06.02 Additional Codes CIRO-7 Assessment Billing - CIRO-7 Assessment Tool: CIRO-7 Assessment 31044 ( [id number])
== END 2023-04-24 14:44 | disposition home or self-care (01) ==
PROVIDERS: PCP Internal Medicine; Visit Provider Internal Medicine
DX: R91.8 Other nonspecific abnormal finding of lung field (principal); J43.2 Centrilobular emphysema; Z87.891 Personal history of nicotine dependence; R06.02 Shortness of breath
CPT/HCPCS: 99214

== ENCOUNTER 2023-05-04 13:03 | Outpatient (AMB) | payer MEDICARE, MEDICAID, SELFPAY ==
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
[2023-05-04 13:08] VITALS: BP 132/87; PULSE 77; O2SAT 99; BMI 33.0
== END 2023-05-04 13:27 | disposition home or self-care (01) ==
PROVIDERS: PCP Internal Medicine; Visit Provider Internal Medicine Pulmonary Disease
DX: R91.8 Other nonspecific abnormal finding of lung field (principal); J43.2 Centrilobular emphysema
CPT/HCPCS: 99203

== ENCOUNTER → 2023-05-04 13:03 | Outpatient (BNVA) | payer MEDICARE, MEDICAID, SELFPAY | PROVIDERS: PCP Internal Medicine; Visit Provider Internal Medicine Pulmonary Disease | DX: R91.8 Other nonspecific abnormal finding of lung field (principal); J43.2 Centrilobular emphysema | CPT/HCPCS: 99202 ==

== ENCOUNTER 2023-05-10 14:00 | Outpatient (RCR) | payer OTHER, MEDICARE, MEDICAID, SELFPAY ==
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
--- NOTE | 2023-06-08 09:29 | MHC.PT.DC ---
[facility] [place] Office [place] Office [place] Office [address] Monica Merida [address] [phone] F: [phone] F: [phone] F: [phone] F: [phone] Physical Therapy Discharge Report Diagnosis: This is a 47 yo female presenting to skilled PT with a script for strain of muscles and tendons in neck. Date of Surgery: Date of Evaluation: 04/12/23 Date of Discharge: 06/08/23 Treatments to Date: 7 Cancellations to Date: 0 No Shows to Date: 0 Discharge Status: Achieved Goals Improved Function Independent with HEP Discharge Summary: Patient feeling well, she has had 7 visits of PT. She demos little to no more pain, WFL cervical ROM and decreased cervicogenic symptoms. She is I in her HEP and is appropriate for HEP at this time. DC to self management. Chart was closed after 30 days. Electronically signed by: Margot Pulliam PT Please sign and return to therapist. Thank you for your referral.
== END 2023-06-08 09:29 | disposition home or self-care (01) ==
LOC: HO.PTCHIC 14:00
PROVIDERS: PCP Internal Medicine; Visit Provider Internal Medicine
DX: S16.1XXD Strain of muscle, fascia and tendon at neck level, subsequent encounter (principal); V89.2XXD Person injured in unspecified motor-vehicle accident, traffic, subsequent encounter
CPT/HCPCS: 97110; 97140; 97162

== ENCOUNTER 2023-05-23 12:32 | Outpatient (AMB) | payer MEDICARE, MEDICAID, SELFPAY ==
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
[2023-05-23 12:34] VITALS: BP 110/76; PULSE 90; O2SAT 97; BMI 33.7
== END 2023-05-23 14:06 | disposition home or self-care (01) ==
PROVIDERS: PCP Internal Medicine; Visit Provider Internal Medicine
DX: S16.1XXA Strain of muscle, fascia and tendon at neck level, initial encounter (principal); V89.2XXS Person injured in unspecified motor-vehicle accident, traffic, sequela
CPT/HCPCS: 99213

== ENCOUNTER 2023-08-16 08:40 | Outpatient (AMB) | payer MEDICARE, MEDICAID, SELFPAY ==
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
== END 2023-08-16 11:44 | disposition home or self-care (01) ==
PROVIDERS: PCP Internal Medicine; Visit Provider Internal Medicine
DX: F33.2 Major depressive disorder, recurrent severe without psychotic features (principal); M79.7 Fibromyalgia; F41.9 Anxiety disorder, unspecified; R25.2 Cramp and spasm
CPT/HCPCS: 99442

== ENCOUNTER 2023-08-24 12:36 | Outpatient (REF) | payer MEDICARE, MEDICAID, SELFPAY ==
--- NOTE | ~2023-08-24 | CT_ITS ---
EXAMINATION: CT CHEST WITHOUT CONTRAST CLINICAL INFORMATION: Pulmonary nodules. COMPARISON: None available. TECHNIQUE: Multidetector volumetric CT imaging of the chest was done. Axial MIP volume rendering provided. Sagittal and coronal reformatted images were obtained. This CT examination was performed using dose optimization techniques as appropriate, variously including the following: *Automated exposure control *Adjustment of mA and/or kV according to patient size (this includes techniques or standardized protocols for targeted exams where dose is matched to indication/reason for exam; i.e. extremities or head) *Use of iterative reconstruction technique DLP: 140 mGy-cm FINDINGS: LUNGS: Moderate centrilobular emphysema. Diffuse airway wall thickening consistent with chronic airways disease. Scattered micronodules for which no imaging follow-up is recommended as per Fleischner Society guidelines. 4 mm average diameter solid nodule right lower lobe series 6 image 232. 4 mm average diameter solid nodule right lower lobe series 6 image 285. MEDIASTINUM: No adenopathy. No aortic aneurysm. No pericardial effusion. CORONARY ARTERY CALCIFICATION: Mild LAD calcium PLEURA: There is no pleural effusion. No pleural mass or thickening. AXILLA: No lymphadenopathy. Cystic lesions in the right breast better evaluated with mammography. Patient has mammography 12/06/2022 documenting cysts. UPPER ABDOMEN: Unremarkable. OSSEOUS STRUCTURES: Degenerative changes seen in the spine. CT/CT chest wo IV con IMPRESSION: Moderate centrilobular emphysema and diffuse airway wall thickening consistent with chronic airways disease. Mild LAD calcium. Correlate with cardiac risk factors. Multiple pulmonary nodules measuring up to 4 mm in size. Correlation with previous imaging that prompted this evaluation is necessary. If this CT is considered on a stand alone basis, then per Fleischner Society Guidelines, no routine follow-up imaging is recommended. Fleischner guidelines were followed.
== END 2023-08-24 12:37 | disposition home or self-care (01) ==
LOC: HO.CT 12:36
PROVIDERS: PCP Internal Medicine; Visit Provider Internal Medicine Pulmonary Disease
DX: R91.8 Other nonspecific abnormal finding of lung field (principal)
CPT/HCPCS: 71250

== ENCOUNTER 2023-09-07 13:12 | Outpatient (AMB) | payer MEDICARE, MEDICAID, SELFPAY ==
[2023-09-07 13:13] VITALS: BP 108/74; PULSE 79; O2SAT 97; BMI 33.6
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
== END 2023-09-07 13:34 | disposition home or self-care (01) ==
PROVIDERS: PCP Internal Medicine; Visit Provider Internal Medicine Pulmonary Disease
DX: R91.8 Other nonspecific abnormal finding of lung field (principal); J43.2 Centrilobular emphysema
CPT/HCPCS: 99214

== ENCOUNTER → 2023-09-07 13:12 | Outpatient (BNVA) | payer MEDICARE, MEDICAID, SELFPAY | PROVIDERS: PCP Internal Medicine; Visit Provider Internal Medicine Pulmonary Disease | DX: J43.2 Centrilobular emphysema (principal); R91.8 Other nonspecific abnormal finding of lung field; Z87.891 Personal history of nicotine dependence | CPT/HCPCS: 99212 ==

== ENCOUNTER 2023-11-28 08:17 | Outpatient (AMB) | payer MEDICARE, MEDICAID, SELFPAY ==
[2023-11-28 08:23] VITALS: BP 120/82; PULSE 66; O2SAT 99; BMI 32.5
--- NOTE | 2023-11-28 08:23 | MHC.PC.OV ---
Vital Signs 11/28/23 08:23 Height 5 ft 3 in Weight 183 lb 8 oz BMI 32.5 BP 120/82 Blood Pressure Location Rt brachial Position Sitting Pulse 66 Pulse Source Pulse Oximeter Pulse Oximetry (%) 99 Oxygen Delivery Method Room Air Intake Visit Reasons: PE Allergies gabapentin Allergy (Unknown, Verified 11/28/23 08:26) suicidal fentanyl Adverse Reaction (Intermediate, Verified 11/28/23 08:26) EXCESSIVE SWEATING Medication List - Last Reconciled 11/28/23 by Sissy Moncada MD acetaminophen (Tylenol) 650 mg PO Q6H PRN alprazolam 0.5 mg PO DAILY PRN 30 days cyclobenzaprine 5 mg PO BID 30 days ferrous sulfate 325 mg PO DAILY multivitamin 1 tab PO DAILY quetiapine orally 2 times a day; 2 tablets at night and 1 in the morning 90 days Tobacco use date assessed: 11/28/23 Dental Screening Dental Screen Date: 11/28/23 Did you have a dental visit in the last 12 months?: Yes Did you have a dental problem in the last 6 months where you did not have access to dental care?: No Was dental information given to patient?: Patient has dentist HPI PE HPI Details Is a 48-year-old female came in today for physical examination Patient is established we talked to Barbie for her OBGYN care Patient says that she has a history of endometriosis and thinking about having hysterectomy as per recommendation of Dr. Valentin She says that the pain becomes unbearable during her periods Labs are due, to be done today nonfasting Mammogram is due order placed Medications sent Patient is on 50 mg of Seroquel at night and 25 in the morning And alprazolam 0.5 mg once a day as needed for anxiety She suffers from depression and panic disorder Patient will return in 3 months for medication refill and 1 year physical exam BMI is elevated patient is having difficulty losing weight She also smokes marijuana for fibromyalgia pain. 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 Paresthesias in right hand Depression, major, severe recurrence Surgical History History of endometrial ablation History of carpal tunnel surgery of right wrist History of breast lump removal History of tubal ligation Family History Mother Mental health disorder Substance use disorder Social History Household Members: Spouse Housing: House Are you a primary neonatal intensive care unit nurse to a significant other at home: No Do you presently have visiting nurse or other home services: No Alcohol intake: never Patient Tobacco Use Status: Former Tobacco user Quit Date: 2018 Smoked: 30 years e-Cigarette/Vaping Use: Never Used Second Hand Smoke Exposure: No service: No Current occupational status: unemployed and disabled 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 1. Little interest or pleasure in doing things: more than half the days 2. Feeling down, depressed, or hopeless: more than half the days 3. Trouble falling or staying asleep, or sleeping too much: more than half the days 4. Feeling tired or having little energy: more than half the days 5. Poor appetite or overeating: more than half the days 6. Feeling bad about yourself - or that you are a failure or have let yourself or your family down: more than half the days 7. Trouble concentrating on things, such as reading the newspaper or watching television: more than half the days 8. Moving or speaking so slowly that other people could have noticed. Or the opposite - being so fidgety or restless that you have been moving around a lot more than usual: more than half the days 9. Thoughts that you would be better off or of hurting yourself in some way: more than half the days Total score: 18 Depression Screening Interpretation: Positive Depression Screening Follow-up: Existing condition and In treatment Depression Screening Done: Yes 85182 - PHQ-9 Billing: Yes Source: Developed by Drs. Keith Osman, Domenica B.W. Stephen Jimenez and colleagues, with an educational gregg from [employer]. Thrive Questionnaire Date Thrive assessed: 11/28/23 I am a: Patient What is your living situation today?: I have a steady place to live Within the past 12 months, did the food you bought not last and you didn't have the money to get more?: Sometimes True Within the past 12 months, did you worry whether your food would run out before you got money to buy more?: Sometimes True Do you have trouble paying for medicines?: No Do you have trouble getting transportation to medical appointments?: No Do you have trouble paying your heating and electricity bill?: No Do you have trouble taking care of your child, family member or friend?: No Do you have trouble with day-to-day activities such as bathing, preparing meals, shopping, managing finances, etc.?: Yes Are you currently unemployed and looking for a job?: No Are you interested in more education?: No Please select the resources that you would like help with: None Currently or been in a relationship where the following occur: no concerns reported THRIVE Score: 2 AUDIT C Alcohol Use Questionnaire (AUDIT-C) 1. How often do you have a drink containing alcohol?: Never Total Score: 0 CIRO-7 AMB Questionnaire CIRO-7 Date CIRO - 7 assessed: 04/24/23 Feeling nervous, anxious, or on edge: 2 = More than half the days Not being able to stop or control worryin = More than half the days Worrying too much about different things: 2 = More than half the days Trouble relaxin = More than half the days Being so restless that it is hard to sit still: 3 = Nearly every day Becoming easily annoyed or irritable: 2 = More than half the days Feeling afraid as if something awful might happen: 2 = More than half the days Total CIRO-7 score (0-4 normal; 5-9 mild; 10-14 moderate; 15-21 severe): 15 Source: Developed by Drs. Keith Osman, Stephen Hoover and colleagues, with an educational gregg from [employer]. CIRO-7 Assessment Billing CIRO-7 Assessment Tool: CIRO-7 Assessment 48284 (Existing condition, in treatment) Review of Systems Const Denies chills, Denies fever(s) and Denies headache(s) Eyes Denies blurry vision ENT Denies headache(s), Denies nasal discharge, Denies nasal obstruction, Denies odynophagia and Denies sinus pain Card Denies chest pain at rest and Denies chest pain with activity Resp Denies cough and Denies hemoptysis GI Denies diarrhea, Denies odynophagia, Denies vomiting and Denies hematemesis Reports as per HPI Musc Denies abnormal gait Skin/Breast Reports as per HPI Neuro Denies Neuro-related abnormal movements, Denies Abnormal speech present, Denies abnormal gait, Denies headache(s) and Denies Sensory deficit (Neuro) Psych Denies mood swings and Denies paranoia Endo Reports as per HPI Jim/Lymph Reports as per HPI Aller/Immun Reports as per HPI Physical exam (Primary Care) Vital Signs: Last Vital Signs Pulse 66 11/28/23 08:23 BP 120/82 11/28/23 08:23 Pulse Ox 99 11/28/23 08:23 Oxygen Delivery Method Room Air 11/28/23 08:23 BMI result Body Mass Index 32.5 Tobacco/Smoking Status: Tobacco use Status Tobacco use date assessed 11/28/23 11/28/23 08:29 Patient Tobacco Use Status Former Tobacco user 11/28/23 08:29 e-Cigarette/Vaping Use Never Used 11/28/23 08:29 PHQ-9: PHQ-9 Score PHQ-9: Total score 18 11/28/23 08:31 Depression Screening Interpretation: Positive Depression Screening Follow-up: Existing condition and In treatment Thrive Assessment: Date of Thrive Assessment Date Thrive assessed 11/28/23 11/28/23 08:31 Currently or been in a relationship where the following occur: no concerns reported Const General: cooperative, comfortable and no acute distress Orientation/consciousness: patient oriented x3 HENMT Head: Yes normocephalic and Yes atraumatic Eyes General: appearance normal, both eyes and all related structures Pupils: Equal, round and reactive pupils present EOM: EOMs intact bilaterally Neck Neck: Yes supple and No lymphadenopathy Thyroid: Thyroid normal Lymphatic: no lymphadenopathy noted Chest Breast/axilla palpation: normal palpation of the breasts Resp Effort & Inspection: normal respiratory effort and able to speak in complete sentences Auscultation: clear to auscultation bilaterally Cardio Heart sounds: S1 normal heart sound present and S2 normal heart sound present GI Palpation (GI): Soft to palpation and nontender Auscultation: normal bowel sounds General: Yes no CVA tenderness Back/Spine/Pelvis Back: no CVA tenderness Skin General skin exam: elasticity normal and turgor normal Neuro General: patient oriented x3 and gait normal Cranial nerves: Yes Equal, round and reactive pupils present Speech: No Abnormal speech present Sensory Exam: No Sensory deficit (Neuro) Coordination: tandem gait normal and Romberg test negative Extrem General: Yes normal exam except as noted and No edema Assessment and Plan Assessment & Plan (1) Encounter for general adult medical examination with abnormal findings: Code(s): Z00.01 - Encounter for general adult medical examination with abnormal findings (2) Obesity due to excess calories: Code(s): E66.09 - Other obesity due to excess calories Qualifiers: Obesity classification: adult class 1 (BMI 30 - 34.9) Serious obesity comorbidity presence: without serious comorbidity Body mass index: BMI 32.0-32.9 Qualified Code(s): E66.09 - Other obesity due to excess calories; Z68.32 - Body mass index [BMI] 32.0-32.9, adult (3) Panic disorder: Code(s): F41.0 - Panic disorder [episodic paroxysmal anxiety] (4) Severe anxiety: Code(s): F41.9 - Anxiety disorder, unspecified (5) Fibromyalgia: Code(s): M79.7 - Fibromyalgia (6) Depression, major, severe recurrence: Code(s): F33.2 - Major depressive disorder, recurrent severe without psychotic features Qualifiers: Psychotic features: without psychotic features Qualified Code(s): F33.2 - Major depressive disorder, recurrent severe without psychotic features (7) Degenerative joint disease (DJD) of lumbar spine: Code(s): M47.816 - Spondylosis without myelopathy or radiculopathy, lumbar region Qualifiers: Spinal osteoarthritis complication: without myelopathy or radiculopathy Qualified Code(s): M47.816 - Spondylosis without myelopathy or radiculopathy, lumbar region Plan Is a 48-year-old female came in today for physical examination Patient is established we talked to Barbie for her OBGYN care Patient says that she has a history of endometriosis and thinking about having hysterectomy as per recommendation of Dr. Valentin She says that the pain becomes unbearable during her periods Labs are due, to be done today nonfasting Mammogram is due order placed Medications sent Patient is on 50 mg of Seroquel at night and 25 in the morning And alprazolam 0.5 mg once a day as needed for anxiety She suffers from depression and panic disorder Patient will return in 3 months for medication refill and 1 year physical exam BMI is elevated patient is having difficulty losing weight She also smokes marijuana for fibromyalgia pain. Orders: Orders Complete Blood Count Auto Diff Today E66.09 - Other obesity due to excess calories, F33.2 - Major depressive disorder, recurrent severe without psychotic features, F41.0 - Panic disorder [episodic paroxysmal anxiety], F41.9 - Anxiety disorder, unspecified, M47.816 - Spondylosis without myelopathy or radiculopathy, lumbar region, M79.7 - Fibromyalgia, Z00.01 - Encounter for general adult medical examination with abnormal findings LDL Cholesterol Direct Today E66.09 - Other obesity due to excess calories, F33.2 - Major depressive disorder, recurrent severe without psychotic features, F41.0 - Panic disorder [episodic paroxysmal anxiety], F41.9 - Anxiety disorder, unspecified, M47.816 - Spondylosis without myelopathy or radiculopathy, lumbar region, M79.7 - Fibromyalgia, Z00.01 - Encounter for general adult medical examination with abnormal findings Hemoglobin A1c Today E66.09 - Other obesity due to excess calories, F33.2 - Major depressive disorder, recurrent severe without psychotic features, F41.0 - Panic disorder [episodic paroxysmal anxiety], F41.9 - Anxiety disorder, unspecified, M47.816 - Spondylosis without myelopathy or radiculopathy, lumbar region, M79.7 - Fibromyalgia, Z00.01 - Encounter for general adult medical examination with abnormal findings Comprehensive Met. Panel Today E66.09 - Other obesity due to excess calories, F33.2 - Major depressive disorder, recurrent severe without psychotic features, F41.0 - Panic disorder [episodic paroxysmal anxiety], F41.9 - Anxiety disorder, unspecified, M47.816 - Spondylosis without myelopathy or radiculopathy, lumbar region, M79.7 - Fibromyalgia, Z00.01 - Encounter for general adult medical examination with abnormal findings TSH reflex Free T4 Today E66.09 - Other obesity due to excess calories, F33.2 - Major depressive disorder, recurrent severe without psychotic features, F41.0 - Panic disorder [episodic paroxysmal anxiety], F41.9 - Anxiety disorder, unspecified, M47.816 - Spondylosis without myelopathy or radiculopathy, lumbar region, M79.7 - Fibromyalgia, Z00.01 - Encounter for general adult medical examination with abnormal findings Vitamin D 25-OH (D2 and D3) Today E66.09 - Other obesity due to excess calories, F33.2 - Major depressive disorder, recurrent severe without psychotic features, F41.0 - Panic disorder [episodic paroxysmal anxiety], F41.9 - Anxiety disorder, unspecified, M47.816 - Spondylosis without myelopathy or radiculopathy, lumbar region, M79.7 - Fibromyalgia, Z00.01 - Encounter for general adult medical examination with abnormal findings MM tomosynthesis screening BI Today Z12.31 - Encounter for screening mammogram for malignant neoplasm of breast Medications: Refilled cyclobenzaprine 5 mg PO BID 30 days 60 tabs 0RF muscle spasm alprazolam 0.5 mg PO DAILY 30 days PRN 30 tabs 2RF anxiety quetiapine orally 2 times a day; 2 tablets at night and 1 in the morning 90 days 270 tabs 0RF Coding Level of Care Code Est Pt Prev Care 40-64y(79612) Diagnoses Encounter for general adult medical examination with abnormal findings Z00.01 Class 1 obesity due to excess calories without serious comorbidity with body mass index (BMI) of 32.0 to 32.9 in adult E66.09; Z68.32 Obesity classification: adult class 1 (BMI 30 - 34.9) Serious obesity comorbidity presence: without serious comorbidity Body mass index: BMI 32.0-32.9 Panic disorder F41.0 Severe anxiety F41.9 Fibromyalgia M79.7 Severe episode of recurrent major depressive disorder, without psychotic features F33.2 Psychotic features: without psychotic features Spondylosis of lumbar region without myelopathy or radiculopathy M47.816 Spinal osteoarthritis complication: without myelopathy or radiculopathy Additional Codes CIRO-7 Assessment Billing - CIRO-7 Assessment Tool: CIRO-7 Assessment [id number] ([id number])
== END 2023-11-28 08:48 | disposition home or self-care (01) ==
PROVIDERS: PCP Internal Medicine; Visit Provider Internal Medicine
DX: Z00.00 Encounter for general adult medical examination without abnormal findings (principal); F33.2 Major depressive disorder, recurrent severe without psychotic features; E66.09 Other obesity due to excess calories; Z68.32 Body mass index [BMI] 32.0-32.9, adult; F41.0 Panic disorder [episodic paroxysmal anxiety]; F41.9 Anxiety disorder, unspecified; M79.7 Fibromyalgia; M47.816 Spondylosis without myelopathy or radiculopathy, lumbar region
CPT/HCPCS: 99396

== ENCOUNTER 2023-11-28 08:52 | Outpatient (REF) | payer MEDICARE, MEDICAID, SELFPAY ==
[2023-11-28 10:33] LABS: Basophils Absolute Auto 0.1 X10*3/uL (0.0-0.2); Basophils Percent Auto 0.6 % (0-2); Eosinophils Absolute Auto 0.2 X10*3/uL (0.0-0.4); Eosinophils Percent Auto 2.2 % (0-4); Hematocrit 40.4 % (37.0-47.0); Hemoglobin 12.9 g/dl (12.0-16.0); Imm Gran Abs Auto 0.06 X10*3/uL (0.00-0.03); Imm Gran Pct Auto 0.5 % (0.0-0.4); Lymphocytes Absolute Auto 4.7 X10*3/uL (1.2-4.9); Lymphocytes Percent Auto 42.7 % (20-40); MANUAL DIFF FLAG SCAN; Mean Corpuscular HGB Conc 31.9 g/dl (31.0-35.0); Mean Corpuscular Hemoglobin 29.6 pg (27.0-33.0); Mean Corpuscular Volume 92.7 fL (80.0-98.0); Mean Platelet Volume 11.1 fL (9.4-12.3); Monocytes Absolute Auto 0.9 X10*3/uL (0.1-1.2); Monocytes Percent Auto 8.5 % (2-11); Neutrophils Percent Auto 45.5 % (45-73); Platelet Count 453 X10*3/uL (160-400); Red Blood Count 4.36 X10*6/uL (4.20-5.50); Red Cell Distribution Width 14.3 % (11.0-16.0); SCAN SMEAR FLAG 1
[2023-11-28 11:06] LABS: Alanine Aminotransferase 12 U/L (0-31); Albumin Level 4.3 g/dL (3.5-5.0); Alkaline Phosphatase 76 U/L (39-117); Anion Gap 12 (12-20); Aspartate Amino Transferase 15 U/L (5-31); Bilirubin Total 0.1 mg/dL (0.0-1.0); Blood Urea Nitrogen 10 mg/dL (9-16); Calcium 10.1 mg/dL (8.4-10.2); Carbon Dioxide 28 mmol/L (22-29); Chloride 106 mmol/L (96-108); Estimated Glomerular Filt Rate > 60; Glucose Random 83 mg/dL (60-115); Potassium 3.9 mmol/L (3.3-5.1); Sodium 142 mmol/L (135-145); Total Protein 7.5 g/dL (6.5-8.0)
[2023-11-28 11:15] LABS: SLIDE REVIEW VERIFIED
[2023-11-28 11:25] LABS: Estimated Average Glucose 100 mg/dL; Hemoglobin A1c % 5.1 % (<6.0)
[2023-11-28 11:28] LABS: TSH reflex Free T4 1.17 uIU/mL (0.32-4.0)
[2023-11-29 17:58] LABS: LDL Cholesterol Direct 104 mg/dL (<100)
[2023-12-06 15:53] LABS: Vitamin D 25-OH, D2 <4 ng/mL; Vitamin D 25-OH, D3 24 ng/mL; Vitamin D 25-OH, Total 24 ng/mL (30-100)
== END 2023-11-28 08:53 | disposition home or self-care (01) ==
LOC: HO.HMGCLDS 08:52
PROVIDERS: PCP Internal Medicine; Visit Provider Internal Medicine
DX: Z00.01 Encounter for general adult medical examination with abnormal findings (principal); E66.01 Morbid (severe) obesity due to excess calories; F41.0 Panic disorder [episodic paroxysmal anxiety]; F41.9 Anxiety disorder, unspecified; M79.7 Fibromyalgia; F33.2 Major depressive disorder, recurrent severe without psychotic features; M47.816 Spondylosis without myelopathy or radiculopathy, lumbar region
CPT/HCPCS: 36415; 80053; 82306; 83036; 83721; 84443; 85025

== ENCOUNTER 2023-12-26 14:22 | Outpatient (REF) | payer MEDICARE, MEDICAID, SELFPAY ==
--- NOTE | ~2023-12-26 | MM_ITS ---
EXAMINATION: MM SCREENING DIGITAL BREAST TOMOSYNTHESIS, BILATERAL CLINICAL INFORMATION: Screening. Asymptomatic. COMPARISON: Mammography: 12/06/2022, 11/16/2022, 04/15/2021, 06/28/2018. Right breast ultrasound 12/06/2022, 07/04/2018. TECHNIQUE: Digital breast tomosynthesis is performed in both the craniocaudal and mediolateral oblique views along with computer-aided detection (CAD). Synthesized 2D images are generated from the tomosynthesis. FINDINGS: The breasts are heterogeneously dense, which may obscure small masses (ACR BI-RADS breast composition Category c). There are several directly abutting oval masses in the upper outer right breast, as well as the slightly medial retroareolar right breast, consistent with known cysts. At least 5 circumscribed masses are present in the right breast. They are all unchanged. There are a few words but a few similar low density circumscribed masses in the left breast, also most likely waxing and waning cysts. Otherwise, no suspicious masses, suspicious grouped microcalcifications, or new areas of architectural distortion are present in either breast. No skin or axillary abnormality. MM/MM tomosynthesis screening BI IMPRESSION: -No mammographic evidence of malignancy. -Stable fibrocystic pattern of heterogeneously dense breast parenchyma. Waxing and waning cysts in both breasts. ASSESSMENT: BI-RADS BI-RADS 2 - Benign Findings RECOMMENDATION: Routine annual mammography screening. 1 year F/U This examination should not preclude the clinical evaluation of a suspicious palpable abnormality. This patient's information was entered into a reminder system with a target due date for their next mammogram.
== END 2023-12-26 14:23 | disposition home or self-care (01) ==
LOC: HO.MAMMO 14:22
PROVIDERS: PCP Internal Medicine; Visit Provider Internal Medicine
DX: Z12.31 Encounter for screening mammogram for malignant neoplasm of breast (principal)
CPT/HCPCS: 77063; 77067

== ENCOUNTER → 2023-12-26 14:30 | Outpatient (BNV) | payer MEDICARE, MEDICAID, SELFPAY | PROVIDERS: PCP Internal Medicine; Visit Provider Radiology Diagnostic Radiology | DX: Z12.31 Encounter for screening mammogram for malignant neoplasm of breast (principal) | CPT/HCPCS: 77063; 77067 ==

== ENCOUNTER 2023-12-28 12:29 | Outpatient (AMB) | payer MEDICARE, MEDICAID, SELFPAY ==
--- NOTE | 2023-12-28 12:32 | MHC.PC.OV ---
Vital Signs 12/28/23 12:33 Height 5 ft 3 in Weight 178 lb 6 oz BMI 31.6 BP 118/80 Blood Pressure Location Rt brachial Position Sitting Pulse 94 Pulse Source Pulse Oximeter Pulse Oximetry (%) 97 Oxygen Delivery Method Room Air Intake Visit Reasons: 9 month follow up Allergies gabapentin Allergy (Unknown, Verified 12/28/23 12:33) suicidal fentanyl Adverse Reaction (Intermediate, Verified 12/28/23 12:33) EXCESSIVE SWEATING Medication List - Last Reconciled 12/28/23 by Sissy Moncaad MD acetaminophen (Tylenol) 650 mg PO Q6H PRN alprazolam 0.5 mg PO DAILY PRN 30 days cyclobenzaprine 5 mg PO BID 30 days ferrous sulfate 325 mg PO DAILY multivitamin 1 tab PO DAILY quetiapine orally 2 times a day; 2 tablets at night and 1 in the morning 90 days Tobacco use date assessed: 11/28/23 Dental Screening Dental Screen Date: 11/28/23 HPI 9 month follow up HPI Details Patient is a 48-year-old female came in today for her regular follow-up Suffers from severe depression, Patient is on 50 mg of Seroquel at night and 25 in the morning, she usually does not take that in the morning as it makes her very tired Panic anxiety syndrome: Taking alprazolam 0.5 mg once a day however anxiety is not controlled Patient is unable to sit still. I am increasing the dose to b.i.d. Patient is complying with the treatment plan no signs of abuse She also have restless legs syndrome, patient has seen neurologist and has tried couple of different medications but they did not help She is allergic to gabapentin She also smokes marijuana for fibromyalgia pain. 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 Paresthesias in right hand Depression, major, severe recurrence Surgical History History of endometrial ablation History of carpal tunnel surgery of right wrist History of breast lump removal History of tubal ligation Family History Mother Mental health disorder Substance use disorder Social History Household Members: Spouse Housing: House Are you a primary lead caregiver to a significant other at home: No Do you presently have visiting nurse or other home services: No Alcohol intake: never Patient Tobacco Use Status: Former Tobacco user Quit Date: 2018 Smoked: 30 years e-Cigarette/Vaping Use: Never Used Second Hand Smoke Exposure: No service: No Current occupational status: unemployed and disabled 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 Keith Osman, Domenica Jimenez, Stephen Veliz and colleagues, with an educational gregg from [employer]. Review of Systems Const Denies chills and Denies fever(s) ENT Denies epistaxis and Denies nasal discharge Card Denies chest pain Resp Denies chest congestion, Denies cough and Denies hemoptysis GI Denies diarrhea and Denies nausea Skin/Breast Denies rash Neuro Reports no additional complaints Psych Reports no additional complaints Endo Reports no additional complaints Physical exam (Primary Care) Vital Signs: Last Vital Signs Pulse 94 12/28/23 12:33 BP 118/80 12/28/23 12:33 Pulse Ox 97 12/28/23 12:33 Oxygen Delivery Method Room Air 12/28/23 12:33 BMI result Body Mass Index 31.6 Tobacco/Smoking Status: Tobacco use Status Tobacco use date assessed 11/28/23 12/28/23 12:37 Patient Tobacco Use Status Former Tobacco user 12/28/23 12:37 e-Cigarette/Vaping Use Never Used 12/28/23 12:37 Thrive Assessment: Date of Thrive Assessment Date Thrive assessed 11/28/23 12/28/23 12:37 Const General: cooperative, comfortable and no acute distress Orientation/consciousness: patient oriented x3 HENMT Head: Yes normocephalic Eyes General: appearance normal, both eyes and all related structures Neck Neck: Yes supple Resp Effort & Inspection: normal respiratory effort, no cough and no stridor Cardio Rhythm: regular rhythm Heart sounds: S1 normal heart sound present and S2 normal heart sound present Skin General skin exam: turgor normal Neuro General: patient oriented x3, tone normal and moves all extremities Extrem Right lower extremity: no edema Left lower extremity: no edema Assessment and Plan Assessment & Plan (1) Panic disorder: Code(s): F41.0 - Panic disorder [episodic paroxysmal anxiety] (2) Severe anxiety: Code(s): F41.9 - Anxiety disorder, unspecified (3) Fibromyalgia: Code(s): M79.7 - Fibromyalgia (4) Depression, major, severe recurrence: Code(s): F33.2 - Major depressive disorder, recurrent severe without psychotic features Qualifiers: Psychotic features: without psychotic features Qualified Code(s): F33.2 - Major depressive disorder, recurrent severe without psychotic features (5) Obesity due to excess calories: Comment: If your BMI is between 25 and 29.9, you are overweight. If your BMI is 30 or greater, you are obese. ___ Being obese is a problem, because it increases the risks of many different health problems. It can also make it hard for you to move, breathe, and do other things that people who are at a healthy weight can do easily. Plus, being obese can be hard emotionally. ___ What are the health risks of being obese? Being obese increases a persons risk of developing many health problems. Here are just a few examples: __ Diabetes High blood pressure, High cholesterol, Heart disease (including heart attacks) Stroke, Sleep apnea (a disorder in which you stop breathing for short periods while asleep) Asthma, Cancer __ Does being obese shorten a persons life? Yes. Studies show that people who are obese younger than people who are a healthy weight. They also show that the risk of goes up the heavier a person is. The degree of increased risk depends on how long the person has been obese, and on what other medical problems he or she has. , Reduce your carbohydrate intake and choose carbs that are complex. Remember as a general rule of thumb, avoid highly processed foods. If it's white and soft, it's probably been stripped of its nutritional value. Change white bread to whole wheat bread, white rice to brown rice, white potatoes to sweet potatoes, white pasta to whole wheat pasta. Monitor portion sizes too: protein should be no bigger than your fist. Limit your red meat intake to only once or twice a wk. Eat more white meat but make sure to avoid creamy sauces etc. Broiling, baking or grilling is best. Increase dark, green leafy vegetables and fruits. Code(s): E66.09 - Other obesity due to excess calories Qualifiers: Obesity classification: adult class 1 (BMI 30 - 34.9) Serious obesity comorbidity presence: without serious comorbidity Body mass index: BMI 32.0-32.9 Qualified Code(s): E66.09 - Other obesity due to excess calories; Z68.32 - Body mass index [BMI] 32.0-32.9, adult Plan Patient is a 48-year-old female came in today for her regular follow-up Suffers from severe depression, Patient is on 50 mg of Seroquel at night and 25 in the morning, she usually does not take that in the morning as it makes her very tired Panic anxiety syndrome: Taking alprazolam 0.5 mg once a day however anxiety is not controlled Patient is unable to sit still. I am increasing the dose to b.i.d. Patient is complying with the treatment plan no signs of abuse She also have restless legs syndrome, patient has seen neurologist and has tried couple of different medications but they did not help She is allergic to gabapentin She also smokes marijuana for fibromyalgia pain. Patient has appointment end of next month for follow-up on anxiety Labs done recently shows vitamin-D deficiency supplement sent Medications: New cholecalciferol (vitamin D3) 25 mcg PO DAILY 90 days 90 caps 1RF Changed From alprazolam 0.5 mg PO DAILY 30 days PRN 30 tabs 2RF anxiety To alprazolam 0.5 mg PO BID 30 days PRN 60 tabs 1RF anxiety Coding Level of Care Code Est Pt Level 4 (90454) Complex EM visit Add On G2211 Diagnoses Panic disorder F41.0 Severe anxiety F41.9 Fibromyalgia M79.7 Severe episode of recurrent major depressive disorder, without psychotic features F33.2 Psychotic features: without psychotic features Class 1 obesity due to excess calories without serious comorbidity with body mass index (BMI) of 32.0 to 32.9 in adult E66.09; Z68.32 Obesity classification: adult class 1 (BMI 30 - 34.9) Serious obesity comorbidity presence: without serious comorbidity Body mass index: BMI 32.0-32.9
[2023-12-28 12:33] VITALS: BP 118/80; PULSE 94; O2SAT 97; BMI 31.6
== END 2023-12-28 13:50 | disposition home or self-care (01) ==
PROVIDERS: PCP Internal Medicine; Visit Provider Internal Medicine
DX: M79.7 Fibromyalgia (principal); F41.0 Panic disorder [episodic paroxysmal anxiety]; F33.2 Major depressive disorder, recurrent severe without psychotic features; F41.9 Anxiety disorder, unspecified; E66.09 Other obesity due to excess calories; Z68.32 Body mass index [BMI] 32.0-32.9, adult
CPT/HCPCS: 99214; G2211

== ENCOUNTER 2024-02-14 08:37 | Outpatient (AMB) | payer MEDICARE, MEDICAID, SELFPAY ==
--- NOTE | 2024-02-14 09:45 | MHC.PC.OV ---
Intake Visit Reasons: Telehealth Meds Allergies gabapentin Allergy (Unknown, Verified 12/28/23 12:33) suicidal fentanyl Adverse Reaction (Intermediate, Verified 12/28/23 12:33) EXCESSIVE SWEATING Medication List - Last Reconciled 02/14/24 by Sissy Moncada MD acetaminophen (Tylenol) 650 mg PO Q6H PRN alprazolam 0.5 mg PO BID PRN 30 days cholecalciferol (vitamin D3) 25 mcg PO DAILY 90 days cyclobenzaprine 5 mg PO BID 30 days ferrous sulfate 325 mg PO DAILY multivitamin 1 tab PO DAILY quetiapine orally 2 times a day; 2 tablets at night and 1 in the morning 90 days Tobacco use date assessed: 11/28/23 Dental Screening Dental Screen Date: 11/28/23 HPI Telehealth Meds HPI Details doing well with increase does of Alprazolam .5 mg bid also taking seroqual in am, prn anxiety is table at this time need refill on these meds, sent Vit d def, continue supplement 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 Paresthesias in right hand Depression, major, severe recurrence Surgical History History of endometrial ablation History of carpal tunnel surgery of right wrist History of breast lump removal History of tubal ligation Family History Mother Mental health disorder Substance use disorder Social History Household Members: Spouse Housing: House Are you a primary career development consultant to a significant other at home: No Do you presently have visiting nurse or other home services: No Alcohol intake: never Patient Tobacco Use Status: Former Tobacco user Years Smoked: 30 years e-Cigarette/Vaping Use: Never Used Second Hand Smoke Exposure: No service: No Current occupational status: unemployed and disabled 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 Keith Osman, Domenica Jimenez, Stephen Veliz and colleagues, with an educational gregg from [employer]. Review of Systems Const Denies chills and Denies fever(s) ENT Denies epistaxis and Denies nasal discharge Card Denies chest pain Resp Denies chest congestion, Denies cough and Denies hemoptysis GI Denies diarrhea and Denies nausea Skin/Breast Denies rash Neuro Reports no additional complaints Psych Reports no additional complaints Endo Reports no additional complaints Physical exam (Primary Care) Tobacco/Smoking Status: Tobacco use Status Tobacco use date assessed 11/28/23 02/14/24 09:46 Patient Tobacco Use Status Former Tobacco user 02/14/24 09:46 e-Cigarette/Vaping Use Never Used 02/14/24 09:46 Thrive Assessment: Date of Thrive Assessment Date Thrive assessed 11/28/23 02/14/24 09:46 Telehealth Telehealth Telehealth Platform: [employer] Location of provider rendering services: practice address Location of patient: address on file Patient Identification confirmed using: Name, : Yes Telehealth method: voice only Patient verbally consented to treatment: Yes Patient verbally consented to billing insurance company: Yes Patient informed of any privacy concerns related to visit: Yes Minutes spent on Phone/Video with Pt.: 14 Assessment and Plan Assessment & Plan (1) Panic disorder: Code(s): F41.0 - Panic disorder [episodic paroxysmal anxiety] (2) Severe anxiety: Code(s): F41.9 - Anxiety disorder, unspecified (3) Depression, major, severe recurrence: Code(s): F33.2 - Major depressive disorder, recurrent severe without psychotic features Qualifiers: Psychotic features: without psychotic features Qualified Code(s): F33.2 - Major depressive disorder, recurrent severe without psychotic features Plan doing well with increase does of Alprazolam .5 mg bid also taking seroqual in am, prn anxiety is table at this time need refill on these meds, sent Vit d def, continue supplement Medications: Refilled cholecalciferol (vitamin D3) 25 mcg PO DAILY 90 caps 1RF 90 days quetiapine orally 2 times a day; 2 tablets at night and 1 in the morning 270 tabs 0RF 90 days alprazolam 0.5 mg PO BID PRN 60 tabs 2RF anxiety 30 days Coding Level of Care Code Tele Est Pt Level 3 (93450) Diagnoses Panic disorder F41.0 Severe anxiety F41.9 Severe episode of recurrent major depressive disorder, without psychotic features F33.2 Psychotic features: without psychotic features
== END 2024-02-14 16:50 | disposition home or self-care (01) ==
LOC: HO.HMGC 08:37
PROVIDERS: PCP Internal Medicine; Visit Provider Internal Medicine
DX: F41.0 Panic disorder [episodic paroxysmal anxiety] (principal); F41.9 Anxiety disorder, unspecified; F33.2 Major depressive disorder, recurrent severe without psychotic features
CPT/HCPCS: 99442

== ENCOUNTER 2024-05-01 08:18 | Outpatient (AMB) | payer MEDICARE, MEDICAID, SELFPAY ==
--- NOTE | 2024-05-01 08:28 | A.OFFPC_ITS ---
Intake Visit Reasons: 11 week f/u -[phone] Allergies gabapentin Allergy (Unknown, Verified 05/01/24 08:28) suicidal fentanyl Adverse Reaction (Intermediate, Verified 05/01/24 08:28) EXCESSIVE SWEATING Medication List - Last Reconciled 05/01/24 by Sissy Moncada MD acetaminophen (Tylenol) 650 mg PO Q6H PRN alprazolam 0.5 mg PO BID PRN 30 days cholecalciferol (vitamin D3) 25 mcg PO DAILY 90 days cyclobenzaprine 5 mg PO BID 30 days ferrous sulfate 325 mg PO DAILY multivitamin 1 tab PO DAILY quetiapine orally 2 times a day; 2 tablets at night and 1 in the morning 90 days Tobacco use date assessed: 05/01/24 Dental Screening Dental Screen Date: 05/01/24 Did you have a dental visit in the last 12 months?: Yes Did you have a dental problem in the last 6 months where you did not have access to dental care?: No Was dental information given to patient?: Patient has dentist HPI 11 week f/u -[phone] HPI Details Patient is 48 year old female this is telemed apt Patient states she has good days and bad days but generally feel stable on Alprazolam .5 mg bid and seroqual in am, prn need refill on these meds, sent last set of labs was in november new order placed and patient notified f.u in 3 M [facility] Medical History Restless leg syndrome Panic attack Raynaud disease Carpal tunnel syndrome Leucocytosis Anxiety Numbness and tingling in both hands Chronic pain syndrome Fibromyalgia 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 Paresthesias in right hand Depression, major, severe recurrence Surgical History History of endometrial ablation History of carpal tunnel surgery of right wrist History of breast lump removal History of tubal ligation Family History Mother Mental health disorder Substance use disorder Social History Household Members: Spouse Housing: House Are you a primary transitional care liaison to a significant other at home: No Do you presently have visiting nurse or other home services: No Alcohol intake: never Patient Tobacco Use Status: Former Tobacco user Years Smoked: 30 years e-Cigarette/Vaping Use: Never Used Second Hand Smoke Exposure: No service: No Current occupational status: unemployed and disabled 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 How often do you have a drink containing alcohol?: Never 3. How often do you have six or more drinks on one occasion?: Never Total Score: 0 Score Reviewed/Action Taken: Yes CIRO-7 AMB Questionnaire CIRO-7 Date CIRO - 7 assessed: 05/01/24 Feeling nervous, anxious, or on edge: 0 = Not at all Not being able to stop or control worryin = Not at all Worrying too much about different things: 0 = Not at all Trouble relaxin = Not at all Being so restless that it is hard to sit still: 0 = Not at all Becoming easily annoyed or irritable: 0 = Not at all Feeling afraid as if something awful might happen: 0 = Not at all Total CIRO-7 score (0-4 normal; 5-9 mild; 10-14 moderate; 15-21 severe): 0 Source: Developed by Drs. Keith Osman, Domenica Jimenez, Stephen Veliz and colleagues, with an educational gregg from [employer]. CIRO-7 Assessment Billing CIRO-7 Assessment Tool: CIRO-7 Assessment 97253 Review of Systems Const Denies chills and Denies fever(s) ENT Denies epistaxis and Denies nasal discharge Card Denies chest pain Resp Denies chest congestion, Denies cough and Denies hemoptysis GI Denies diarrhea and Denies nausea Skin/Breast Denies rash Neuro Reports no additional complaints Psych Reports no additional complaints Endo Reports no additional complaints Physical exam (Primary Care) Tobacco/Smoking Status: Tobacco use Status Tobacco use date assessed 05/01/24 05/01/24 08:29 Patient Tobacco Use Status Former Tobacco user 05/01/24 08:29 e-Cigarette/Vaping Use Never Used 05/01/24 08:29 Thrive Assessment: Date of Thrive Assessment Date Thrive assessed 11/28/23 05/01/24 08:29 Telehealth Telehealth Telehealth Platform: [employer] Location of provider rendering services: practice address Location of patient: address on file Patient Identification confirmed using: Name, : Yes Telehealth method: video Patient verbally consented to treatment: Yes Patient verbally consented to billing insurance company: Yes Patient informed of any privacy concerns related to visit: Yes Minutes spent on Phone/Video with Pt.: 13 Assessment and Plan Assessment & Plan (1) Depression, major, severe recurrence: Code(s): F33.2 - Major depressive disorder, recurrent severe without psychotic features Qualifiers: Psychotic features: without psychotic features Qualified Code(s): F33.2 - Major depressive disorder, recurrent severe without psychotic features (2) Leucocytosis: Comment: chronic, stable per heme Code(s): D72.829 - Elevated white blood cell count, unspecified Qualifiers: Leukocytosis type: unspecified Qualified Code(s): D72.829 - Elevated white blood cell count, unspecified (3) Severe anxiety: Code(s): F41.9 - Anxiety disorder, unspecified (4) Panic disorder: Code(s): F41.0 - Panic disorder [episodic paroxysmal anxiety] Plan Patient is 48 year old female this is telemed apt Patient states she has good days and bad days but generally feel stable on Alprazolam .5 mg bid and seroqual in am, prn need refill on these meds, sent last set of labs was in november new order placed and patient notified f.u in 3 M Orders: Orders Comprehensive Met. Panel Today D72.829 - Elevated white blood cell count, unspecified, F33.2 - Major depressive disorder, recurrent severe without psychotic features, F41.0 - Panic disorder [episodic paroxysmal anxiety], F41.9 - Anxiety disorder, unspecified Complete Blood Count Auto Diff Today D72.829 - Elevated white blood cell count, unspecified, F33.2 - Major depressive disorder, recurrent severe without p sychotic features, F41.0 - Panic disorder [episodic paroxysmal anxiety], F41.9 - Anxiety disorder, unspecified Medications: Refilled alprazolam 0.5 mg PO BID 30 days PRN 60 tabs 2RF anxiety quetiapine orally 2 times a day; 2 tablets at night and 1 in the morning 90 days 270 tabs 0RF Coding Level of Care Code Tele Est Pt Level 3 (49637) Diagnoses Severe episode of recurrent major depressive disorder, without psychotic features F33.2 Psychotic features: without psychotic features Leukocytosis, unspecified type D72.829 Leukocytosis type: unspecified Severe anxiety F41.9 Panic disorder F41.0 Additional Codes CIRO-7 Assessment Billing - CIRO-7 Assessment Tool: CIRO-7 Assessment [id number] ([id number])
== END 2024-05-01 09:14 | disposition home or self-care (01) ==
PROVIDERS: PCP Internal Medicine; Visit Provider Internal Medicine
DX: D72.829 Elevated white blood cell count, unspecified (principal); F33.2 Major depressive disorder, recurrent severe without psychotic features; F41.9 Anxiety disorder, unspecified; F41.0 Panic disorder [episodic paroxysmal anxiety]
CPT/HCPCS: 99213

== ENCOUNTER 2024-08-14 14:41 | Outpatient (REF) | payer MEDICARE, MEDICAID, SELFPAY | END 2024-08-14 14:42 | disposition home or self-care (01) | LOC: HO.CT 14:41 | PROVIDERS: PCP Internal Medicine; Visit Provider Internal Medicine Pulmonary Disease | DX: R91.8 Other nonspecific abnormal finding of lung field (principal) | CPT/HCPCS: 71250 ==

== ENCOUNTER → 2024-08-14 14:44 | Outpatient (BNV) | payer MEDICARE, MEDICAID, SELFPAY | PROVIDERS: PCP Internal Medicine; Visit Provider Radiology Diagnostic Radiology | DX: R91.8 Other nonspecific abnormal finding of lung field (principal) | CPT/HCPCS: 71250 ==

== ENCOUNTER 2024-09-09 15:21 | Outpatient (AMB) | payer MEDICARE, MEDICAID, SELFPAY ==
[2024-09-09 15:28] VITALS: BP 122/67; PULSE 87; O2SAT 97; BMI 33.5
--- NOTE | 2024-09-09 15:28 | A.OFFVIS_ITS ---
Vital Signs 09/09/24 15:28 Height 5 ft 3 in Weight 189 lb BMI 33.5 BP 122/67 Blood Pressure Location Rt brachial Position Sitting Pulse 87 Pulse Source Doppler Pulse Oximetry (%) 97 Oxygen Delivery Method Room Air Intake Visit Reasons: pulmonary nodule Allergies gabapentin Allergy (Unknown, Verified 05/01/24 08:28) suicidal fentanyl Adverse Reaction (Intermediate, Verified 05/01/24 08:28) EXCESSIVE SWEATING HPI HPI pulmonary nodule: Details: 48-year-old lady, former approximately 20 pack-year smoker, quit 2017 with no prior history of lung disease followed for right lower lobe pulmonary nodules and pulmonary emphysema. Patient denies any dyspnea or wheezing. She had her 12 month follow-up CT chest with results not available for this visit. 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 Paresthesias in right hand Depression, major, severe recurrence Surgical History History of endometrial ablation History of carpal tunnel surgery of right wrist History of breast lump removal History of tubal ligation Family History Mother Mental health disorder Substance use disorder Social History Household Members: Spouse Housing: House Are you a primary long term care pharmacist to a significant other at home: No Do you presently have visiting nurse or other home services: No Alcohol intake: never Patient Tobacco Use Status: Former Tobacco user Years Smoked: 30 years e-Cigarette/Vaping Use: Never Used Second Hand Smoke Exposure: No service: No Current occupational status: unemployed and disabled 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) Cognitive needs: No Hearing needs: No Vision needs: Yes Female Reproductive History Menstrual Age of Menarche: 13 Review of Systems Const Denies daytime sleepiness, Denies excessive sweating, Denies fatigue, Denies fever(s), Denies lethargy, Denies malaise, Denies night sweats, Denies snoring and Denies weight loss Eyes Denies blurry vision and Denies itchy eyes ENT Denies nasal congestion, Denies post nasal drip, Denies sinus pain, Denies sinus pressure and Denies other ( Thrush) Card Denies chest pain, Denies pedal edema, Denies dyspnea, Denies orthopnea and Denies paroxysmal nocturnal dyspnea Resp Denies cough, Denies hemoptysis, Denies excessive phlegm production, Denies dyspnea, Denies snoring and Denies wheezing GI Denies abdominal pain and Denies heartburn Musc Denies myalgias, Denies arthralgias and Denies joint swelling Skin/Breast Denies rash Neuro Denies memory loss and Denies seizure-like activity Psych Denies abnormal sleep pattern, Denies anxiety and Denies memory loss Endo Denies excessive sweating, Denies fatigue and Denies heat intolerance Jim/Lymph Denies easy bruising Aller/Immun Denies itchy eyes, Denies seasonal rhinorrhea and Denies wheezing Physical Exam Vital Signs: Last Vital Signs Pulse 87 09/09/24 15:28 BP 122/67 09/09/24 15:28 Pulse Ox 97 09/09/24 15:28 Oxygen Delivery Method Room Air 09/09/24 15:28 BMI result Body Mass Index 33.5 Const General: no acute distress and alert Nutritional Appearance: not obese Orientation/consciousness: Other orientation findings ( oriented) HEENT Head: Yes atraumatic Eyes General: appearance normal, both eyes and all related structures Sclerae: sclerae normal EOM: EOMs intact bilaterally Neck Neck: Yes supple Lymphatic: no lymphadenopathy noted Resp Effort & Inspection: normal respiratory effort and no use of accessory muscles Auscultation: clear to auscultation bilaterally Cardio Rate: regular rate Rhythm: regular rhythm Heart sounds: no gallops, no murmurs and no rubs Skin General skin exam: other ( warm) Extrem General: No clubbing, No cyanosis and No edema Assessment & Plan Assessment & Plan (1) Emphysema lung: Code(s): J43.9 - Emphysema, unspecified Category: Medical Qualifiers: Emphysema type: centrilobular Qualified Code(s): J43.2 - Centrilobular emphysema Plan: Symptomatic, continue to monitor clinically. (2) Multiple nodules of lung: Code(s): R91.8 - Other nonspecific abnormal finding of lung field Category: Medical Plan: Results of 12 months follow-up CT chest not available for this visit. On my review, no change in previously noted pulmonary nodules. Will repeat CT chest in 12 months. Orders: Orders CT chest wo IV con 08/30/25 R91.8 - Other nonspecific abnormal finding of lung field Coding Level of Care Code Est Pt Level 4 (29314) Diagnoses Centrilobular emphysema J43.2 Emphysema type: centrilobular Multiple nodules of lung R91.8
== END 2024-09-09 15:44 | disposition home or self-care (01) ==
PROVIDERS: PCP Internal Medicine; Visit Provider Internal Medicine Pulmonary Disease
DX: J43.2 Centrilobular emphysema (principal); R91.8 Other nonspecific abnormal finding of lung field
CPT/HCPCS: 99214

== ENCOUNTER → 2024-09-09 15:21 | Outpatient (BNVA) | payer MEDICARE, MEDICAID, SELFPAY | PROVIDERS: PCP Internal Medicine; Visit Provider Internal Medicine Pulmonary Disease | DX: R91.8 Other nonspecific abnormal finding of lung field (principal); J43.2 Centrilobular emphysema | CPT/HCPCS: 99212 ==

== ENCOUNTER 2025-06-05 08:43 | Outpatient (REF) | payer MEDICARE, MEDICAID, SELFPAY ==
[2025-06-05 10:10] LABS: MANUAL DIFF FLAG NO
[2025-06-05 10:16] LABS: Hematocrit 40.3 % (37.0-47.0); Hemoglobin 13.0 g/dl (12.0-16.0); Imm Gran Abs Auto 0.04 X10*3/uL (0.00-0.03); Imm Gran Pct Auto 0.4 % (0.0-0.4); Lymphocytes Absolute Auto 4.0 X10*3/uL (1.2-4.9); Mean Corpuscular HGB Conc 32.3 g/dl (31.0-35.0); Mean Corpuscular Hemoglobin 29.1 pg (27.0-33.0); Mean Corpuscular Volume 90.4 fL (80.0-98.0); NRBC Abs Auto 0.000 X10*3/uL (0.0-0.012); NRBC Pct Auto 0.0 /100WBC (0.0-0.2); Platelet Count 369 X10*3/uL (160-400); Red Blood Count 4.46 X10*6/uL (4.20-5.50); White Blood Count 10.2 X10*3/uL (4.8-10.8)
[2025-06-05 11:05] LABS: Alanine Aminotransferase 21 U/L (0-31); Albumin Level 4.6 g/dL (3.5-5.0); Alkaline Phosphatase 73 U/L (39-117); Anion Gap 11 (12-20); Aspartate Amino Transferase 21 U/L (5-31); Blood Urea Nitrogen 13 mg/dL (9-16); Calcium 9.6 mg/dL (8.4-10.2); Carbon Dioxide 26 mmol/L (22-29); Chloride 107 mmol/L (96-108); Cholesterol 192 mg/dL (<200); Estimated Glomerular Filt Rate > 60; HDL Cholesterol 38 mg/dL (>40); Potassium 4.2 mmol/L (3.3-5.1); Sodium 140 mmol/L (135-145); Total Protein 7.2 g/dL (6.5-8.0); Triglycerides 253 mg/dL (<150)
== END 2025-06-05 08:44 | disposition home or self-care (01) ==
LOC: HO.HMGCLDS 08:43
PROVIDERS: PCP Internal Medicine; Visit Provider Internal Medicine
DX: Z00.01 Encounter for general adult medical examination with abnormal findings (principal); Z23 Encounter for immunization; M47.816 Spondylosis without myelopathy or radiculopathy, lumbar region; D72.829 Elevated white blood cell count, unspecified; E66.09 Other obesity due to excess calories; F41.0 Panic disorder [episodic paroxysmal anxiety]; F41.9 Anxiety disorder, unspecified; F33.2 Major depressive disorder, recurrent severe without psychotic features; Z59.00 Homelessness unspecified; Z79.899 Other long term (current) drug therapy; Z68.33 Body mass index [BMI] 33.0-33.9, adult
CPT/HCPCS: 36415; 80053; 80061; 84443; 85025; 90471; 90715; 96127; 99396

== ENCOUNTER 2025-06-05 08:43 | Outpatient (AMB) | payer MEDICARE, MEDICAID, SELFPAY ==
[2025-06-05 08:45] VITALS: BP 126/70; PULSE 63; O2SAT 98; BMI 33.7
--- NOTE | 2025-06-05 08:45 | MHC.PC.OV ---
Vital Signs 06/05/25 08:45 Height 5 ft 3 in Weight 190 lb BMI 33.7 BP 126/70 Blood Pressure Location Lt brachial Position Sitting Pulse 63 Pulse Source Pulse Oximeter Pulse Oximetry (%) 98 Intake Visit Reasons: Annual, PE Laboratory Technical Specialist Required: No Accompanied by: Self / Same As Patient Allergies gabapentin Allergy (Unknown, Verified 06/05/25 08:45) suicidal fentanyl Adverse Reaction (Intermediate, Verified 06/05/25 08:45) EXCESSIVE SWEATING Medication List - Last Reconciled 06/05/25 by Sissy Moncada MD acetaminophen (Tylenol) 650 mg PO Q6H PRN cholecalciferol (vitamin D3) 25 mcg PO DAILY 90 days ferrous sulfate 325 mg PO DAILY multivitamin 1 tab PO DAILY Tobacco use date assessed: 06/05/25 Dental Screening Dental Screen Date: 06/05/25 Did you have a dental visit in the last 12 months?: Yes Did you have a dental problem in the last 6 months where you did not have access to dental care?: No Was dental information given to patient?: Patient has dentist HPI Annual, PE HPI Details History of Present Illness The patient is a 49-year-old female presenting for a physical examination. Back Pain: - Patient reports increased pain in the lower back, described as pinching. - History of degenerative changes at L5-S1, disc bulging and protrusion affecting the right nerve. - MRI from 2020 showed findings consistent with degenerative changes and disc protrusion. - Pain impacts daily activities. - History of previously being advised against surgery due to risk of long-term complications. - Hesitation towards surgical intervention unless absolutely necessary. Anxiety and Panic Disorder: - Currently uses Alprazolam 0.5 mg BID PRN for anxiety symptoms. - Reports previous improvement with cannabis use for anxiety. Major Depressive Disorder: - Severe depressive symptoms with ongoing management, including quetiapine. Fibromyalgia and Chronic Pain Syndrome: - Reports chronic widespread pain, managed partially with cyclobenzaprine for muscle spasms. - Cannabis use is reported to provide some relief for fibromyalgia symptoms. Medical History: - Anxiety Disorder - Panic Disorder - Fibromyalgia - Chronic Pain Syndrome - Major Depressive Disorder - Back Pain - Muscle Spasms - History of cannabis use Surgical History: - History of discussions regarding potential spinal fusion surgery, with Neurosurgery years ag. Social History: - Resides in an , indicating transient or unstable housing conditions. - ; is supportive. - Former smoker, quit tobacco approximately 7-8 years ago. - Current use of cannabis, both in smoking and edible forms, for management of fibromyalgia and anxiety. 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 Family History: - Maternal history of benign polyps. Health Maintenance - Discussion and administration of tetanus vaccine. - due for colonoscopy. - Mammogram and INSTALLATION HELPER visits needed but not completed. Medications - Alprazolam 0.5 mg BID PRN for anxiety. - Cyclobenzaprine 5 mg as needed for muscle spasms. - Quetiapine (25 mg) at night for major depressive disorder. 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 - Reports physical job demands contributed to back issues. Patient Instructions - Complete blood work as ordered. - Follow-up appointment in 4 weeks to review labs. - Consider scheduling colonoscopy and mammogram. - Continue current medications and orange picking supervisor refills from pharmacy. - Get tetanus vaccine today for preventive care. Review of Systems - General: No fever no chills - Neurological: No headaches no dizziness - Ear nose throat: No sore throat no hearing difficulty no ear pain - Cardiovascular: No syncope, no chest pain, no palpitations - Gastrointestinal: No nausea vomiting or diarrhea - Endocrine: No polyuria polydipsia no heat intolerance - Genitourinary: No dysuria - Skin: No new complaints Physical Exam General: Cooperative, healthy appearing, comfortable, with some distress when standing from sitting due to back pain Orientation: Patient oriented x3 Head: Normal to inspection Ears: Within normal limit visually Nose: Normal external nose present Face and sinus: Normal facial exam Eyes: Appearance normal, extraocular movement intact pupils reactive Neck: Normal visual inspection and supple Respiratory: Normal respiratory effort and able to speak in complete sentences. Clear to auscultation, no stridor Cardiovascular: S1 and S2 RRR GI: Normal to inspection. Soft to palpation and nontender Skin: Turgor normal, no acute findings Neuro: Patient oriented x3, motor sensory intact, balance intact, tandem pass Extremities: Normal to inspection,ROM inatct Skin no new findings . 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 Paresthesias in right hand Depression, major, severe recurrence Surgical History History of endometrial ablation History of carpal tunnel surgery of right wrist History of breast lump removal History of tubal ligation Family History Mother Mental health disorder Substance use disorder Social History Household Members: Spouse Housing: House Are you a primary overnight caregiver to a significant other at home: No Do you presently have visiting nurse or other home services: No Alcohol intake: never Patient Tobacco Use Status: Former Tobacco user Years Smoked: 30 years e-Cigarette/Vaping Use: Never Used Second Hand Smoke Exposure: No service: No Current occupational status: unemployed and disabled Current occupation: right handed (hx of MEDICAL STAFF ASSISTANT 10 years) Cognitive needs: No Hearing needs: No Vision needs: Yes Female Reproductive History Menstrual Age of Menarche: 13 Questionnaire PHQ-9 Over the last 2 weeks, how often have you been bothered by any of the following problems? 1. Little interest or pleasure in doing things: more than half the days 2. Feeling down, depressed, or hopeless: more than half the days 3. Trouble falling or staying asleep, or sleeping too much: more than half the days 4. Feeling tired or having little energy: nearly every day 5. Poor appetite or overeating: several days 6. Feeling bad about yourself - or that you are a failure or have let yourself or your family down: several days 7. Trouble concentrating on things, such as reading the newspaper or watching television: more than half the days 8. Moving or speaking so slowly that other people could have noticed. Or the opposite - being so fidgety or restless that you have been moving around a lot more than usual: several days 9. Thoughts that you would be better off or of hurting yourself in some way: not at all Total score: 14 Depression Screening Interpretation: Positive Depression Screening Follow-up: Existing condition and In treatment Depression Screening Done: Yes 53196 - PHQ-9 Billing: Yes Source: Developed by Drs. Keith LDomenica Steen, Stephen Veliz and colleagues, with an educational gregg from [employer]. Thrive Questionnaire Date Thrive assessed: 06/02/25 I am a: Patient What is your living situation today?: I have a steady place to live Within the past 12 months, did the food you bought not last and you didn't have the money to get more?: Sometimes True Within the past 12 months, did you worry whether your food would run out before you got money to buy more?: Sometimes True Do you have trouble paying for medicines?: No Do you have trouble getting transportation to medical appointments?: No Do you have trouble paying your heating and electricity bill?: Yes Do you have trouble taking care of your child, family member or friend?: I choose not to answer this question Do you have trouble with day-to-day activities such as bathing, preparing meals, shopping, managing finances, etc.?: Yes Are you currently unemployed and looking for a job?: No Are you interested in more education?: No Please select the resources that you would like help with: None Currently or been in a relationship where the following occur: No concerns reported THRIVE Score: 3 AUDIT C Alcohol Use Questionnaire (AUDIT-C) 1. How often do you have a drink containing alcohol?: Never 2. How many drinks containing alcohol do you have on a typical day when you are drinking?: 1 or 2 3. How often do you have six or more drinks on one occasion?: Never Total Score: 0 Score Reviewed/Action Taken: Yes CIRO-7 AMB Questionnaire CIRO-7 Date CIRO - 7 assessed: 06/05/25 Feeling nervous, anxious, or on edge: 3 = Nearly every day Not being able to stop or control worryin = Nearly every day Worrying too much about different things: 3 = Nearly every day Trouble relaxin = Nearly every day Being so restless that it is hard to sit still: 3 = Nearly every day Becoming easily annoyed or irritable: 3 = Nearly every day Feeling afraid as if something awful might happen: 3 = Nearly every day Total CIRO-7 score (0-4 normal; 5-9 mild; 10-14 moderate; 15-21 severe): 21 Source: Developed by Domenica Rodriguez Kurt Kroenke and colleagues, with an educational gregg from [employer]. CIRO-7 Assessment Billing CIRO-7 Assessment Tool: CIRO-7 Assessment 20650 Physical exam (Primary Care) Vital Signs: Last Vital Signs Pulse 63 06/05/25 08:45 BP 126/70 06/05/25 08:45 Pulse Ox 98 06/05/25 08:45 BMI result Body Mass Index 33.7 Tobacco/Smoking Status: Tobacco use Status Tobacco use date assessed 06/05/25 06/05/25 08:45 Patient Tobacco Use Status Former Tobacco user 06/05/25 08:45 e-Cigarette/Vaping Use Never Used 06/05/25 08:45 PHQ-9: PHQ-9 Score PHQ-9: Total score 14 06/05/25 09:11 Depression Screening Interpretation: Positive Depression Screening Follow-up: Existing condition and In treatment Thrive Assessment: Date of Thrive Assessment Date Thrive assessed 06/02/25 06/05/25 08:45 Currently or been in a relationship where the following occur: No concerns reported Immunizations Boostrix Tdap 2.5 Lf unit-8 mcg-5 Lf/0.5 mL intramuscular syringe Performing Provider: Sissy Moncada MD Performing Location: [facility] [place] [facility] Administered by: Steven Guerra CMA on 06/05/25 09:11 Dose Route Admin Location Dispensed Lot Number Expiration Date NDC Provisioning Specialist 0.5 mL IM Right Deltoid 0.5 mL [id number] 10/08/26 43023-842-35 [employer] Total Dispensed Waste 0.5 mL 0 % VIS Given Date VIS Provided VIS Publication Date 06/05/25 Single Vaccine 21 Eligibility Eligibility Date Funding Source Not [facility] Eligible 06/05/25 Private Coding Level of Care Code Est Pt Level 4 (81837) Est Pt Prev Care 40-64y(68175) Diagnoses Encounter for general adult medical examination with abnormal findings Z00.01 Homeless Z59.00 Severe episode of recurrent major depressive disorder, without psychotic features F33.2 Psychotic features: without psychotic features Panic disorder F41.0 Severe anxiety F41.9 Spondylosis of lumbar region without myelopathy or radiculopathy M47.816 Spinal osteoarthritis complication: without myelopathy or radiculopathy Leukocytosis, unspecified type D72.829 Leukocytosis type: unspecified Class 1 obesity due to excess calories without serious comorbidity with body mass index (BMI) of 32.0 to 32.9 in adult E66.09; Z68.32 Body mass index: BMI 32.0-32.9 Obesity classification: adult class 1 (BMI 30 - 34.9) Serious obesity comorbidity presence: without serious comorbidity Additional Codes CIRO-7 Assessment Billing - CIRO-7 Assessment Tool: CIRO-7 Assessment 17118 ([id number]) PHQ-9 - 89300 - PHQ-9 Billing: Yes ([id number]) Assessment & Plan Assessment & Plan (1) Encounter for general adult medical examination with abnormal findings: Code(s): Z00.01 - Encounter for general adult medical examination with abnormal findings Category: Medical (2) Homeless: Code(s): Z59.00 - Homelessness unspecified Category: Social Hx (3) Depression, major, severe recurrence: Code(s): F33.2 - Major depressive disorder, recurrent severe without psychotic features Category: Medical Qualifiers: Psychotic features: without psychotic features Qualified Code(s): F33.2 - Major depressive disorder, recurrent severe without psychotic features (4) Panic disorder: Code(s): F41.0 - Panic disorder [episodic paroxysmal anxiety] Category: Medical (5) Severe anxiety: Code(s): F41.9 - Anxiety disorder, unspecified Category: Medical (6) Degenerative joint disease (DJD) of lumbar spine: Code(s): M47.816 - Spondylosis without myelopathy or radiculopathy, lumbar region Category: Medical Qualifiers: Spinal osteoarthritis complication: without myelopathy or radiculopathy Qualified Code(s): M47.816 - Spondylosis without myelopathy or radiculopathy, lumbar region (7) Leucocytosis: Comment: chronic, stable per heme Code(s): D72.829 - Elevated white blood cell count, unspecified Category: Medical Qualifiers: Leukocytosis type: unspecified Qualified Code(s): D72.829 - Elevated white blood cell count, unspecified (8) Obesity due to excess calories: Comment: If your BMI is between 25 and 29.9, you are overweight. If your BMI is 30 or greater, you are obese. ___ Being obese is a problem, because it increases the risks of many different health problems. It can also make it hard for you to move, breathe, and do other things that people who are at a healthy weight can do easily. Plus, being obese can be hard emotionally. ___ What are the health risks of being obese? Being obese increases a persons risk of developing many health problems. Here are just a few examples: __ Diabetes High blood pressure, High cholesterol, Heart disease (including heart attacks) Stroke, Sleep apnea (a disorder in which you stop breathing for short periods while asleep) Asthma, Cancer __ Does being obese shorten a persons life? Yes. Studies show that people who are obese younger than people who are a healthy weight. They also show that the risk of goes up the heavier a person is. The degree of increased risk depends on how long the person has been obese, and on what other medical problems he or she has. , Reduce your carbohydrate intake and choose carbs that are complex. Remember as a general rule of thumb, avoid highly processed foods. If it's white and soft, it's probably been stripped of its nutritional value. Change white bread to whole wheat bread, white rice to brown rice, white potatoes to sweet potatoes, white pasta to whole wheat pasta. Monitor portion sizes too: protein should be no bigger than your fist. Limit your red meat intake to only once or twice a wk. Eat more white meat but make sure to avoid creamy sauces etc. Broiling, baking or grilling is best. Increase dark, green leafy vegetables and fruits. Code(s): E66.09 - Other obesity due to excess calories Category: Medical Qualifiers: Body mass index: BMI 32.0-32.9 Obesity classification: adult class 1 (BMI 30 - 34.9) Serious obesity comorbidity presence: without serious comorbidity Qualified Code(s): E66.09 - Other obesity due to excess calories; Z68.32 - Body mass index [BMI] 32.0-32.9, adult Plan History of Present Illness The patient is a 49-year-old female presenting for a physical examination. Back Pain: - Patient reports increased pain in the lower back, described as pinching. - History of degenerative changes at L5-S1, disc bulging and protrusion affecting the right nerve. - MRI from 2020 showed findings consistent with degenerative changes and disc protrusion. - Pain impacts daily activities. - History of previously being advised against surgery due to risk of long-term complications. - Hesitation towards surgical intervention unless absolutely necessary. Anxiety and Panic Disorder: - Currently uses Alprazolam 0.5 mg BID PRN for anxiety symptoms. - Reports previous improvement with cannabis use for anxiety. Major Depressive Disorder: - Severe depressive symptoms with ongoing management, including quetiapine. Fibromyalgia and Chronic Pain Syndrome: - Reports chronic widespread pain, managed partially with cyclobenzaprine for muscle spasms. - Cannabis use is reported to provide some relief for fibromyalgia symptoms. Medical History: - Anxiety Disorder - Panic Disorder - Fibromyalgia - Chronic Pain Syndrome - Major Depressive Disorder - Back Pain - Muscle Spasms - History of cannabis use Surgical History: - History of discussions regarding potential spinal fusion surgery, with Neurosurgery years ag. Social History: - Resides in an , indicating transient or unstable housing conditions. - ; is supportive. - Former smoker, quit tobacco approximately 7-8 years ago. - Current use of cannabis, both in smoking and edible forms, for management of fibromyalgia and anxiety. 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 Family History: - Maternal history of benign polyps. Health Maintenance - Discussion and administration of tetanus vaccine. - due for colonoscopy. - Mammogram and INSTALLATION HELPER visits needed but not completed. Medications - Alprazolam 0.5 mg BID PRN for anxiety. - Cyclobenzaprine 5 mg as needed for muscle spasms. - Quetiapine (25 mg) at night for major depressive disorder. 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 - Reports physical job demands contributed to back issues. Patient Instructions - Complete blood work as ordered. - Follow-up appointment in 4 weeks to review labs. - Consider scheduling colonoscopy and mammogram. - Continue current medications and orange picking supervisor refills from pharmacy. - Get tetanus vaccine today for preventive care. . Orders: Orders Complete Blood Count Auto Diff 06/05/25 D72.829 - Elevated white blood cell count, unspecified, E66.09 - Other obesity due to excess calories, F33.2 - Major depressive disorder, recurrent severe without psychotic features, F41.0 - Panic disorder [episodic paroxysmal anxiety], F41.9 - Anxiety disorder, unspecified, M47.816 - Spondylosis without myelopathy or radiculopathy, lumbar region, Z00.01 - Encounter for general adult medical examination with abnormal findings, Z68.32 - Body mass index [BMI] 32.0-32.9, adult Comprehensive [place]. Panel Fast 06/05/25 D72.829 - Elevated white blood cell count, unspecified, E66.09 - Other obesity due to excess calories, F33.2 - Major depressive disorder, recurrent severe without psychotic features, F41.0 - Panic disorder [episodic paroxysmal anxiety], F41.9 - Anxiety disorder, unspecified, M47.816 - Spondylosis without myelopathy or radiculopathy, lumbar region, Z00.01 - Encounter for general adult medical examination with abnormal findings, Z68.32 - Body mass index [BMI] 32.0-32.9, adult Lipid Panel 06/05/25 D72.829 - Elevated white blood cell count, unspecified, E66.09 - Other obesity due to excess calories, F33.2 - Major depressive disorder, recurrent severe without psychotic features, F41.0 - Panic disorder [episodic paroxysmal anxiety], F41.9 - Anxiety disorder, unspecified, M47.816 - Spondylosis without myelopathy or radiculopathy, lumbar region, Z00.01 - Encounter for general adult medical examination with abnormal findings, Z68.32 - Body mass index [BMI] 32.0-32.9, adult TSH reflex Free T4 06/05/25 D72.829 - Elevated white blood cell count, unspecified, E66.09 - Other obesity due to excess calories, F33.2 - Major depressive disorder, recurrent severe without psychotic features, F41.0 - Panic disorder [episodic paroxysmal anxiety], F41.9 - Anxiety disorder, unspecified, M47.816 - Spondylosis without myelopathy or radiculopathy, lumbar region, Z00.01 - Encounter for general adult medical examination with abnormal findings, Z68.32 - Body mass index [BMI] 32.0-32.9, adult TDaP Immunization 06/05/25 Z23 - Encounter for immunization MM tomosynthesis screening BI 06/05/25 Z12.31 - Encounter for screening mammogram for malignant neoplasm of breast Referrals Open Access Screening Colonoscopy Referral Z12.11 - Encounter for screening for malignant neoplasm of colon, Z12.12 - Encounter for screening for malignant neoplasm of rectum INSTALLATION HELPER Referral Z01.419 - Encounter for gynecological examination (general) (routine) without abnormal findings Medications: Changed From quetiapine orally 2 times a day; 2 tablets at night and 1 in the morning 90 days 270 tabs 0RF To quetiapine 25 mg PO BID 60 tabs 0RF 30 days Refilled alprazolam 0.5 mg PO BID PRN 60 tabs 0RF anxiety 30 days
== END 2025-06-05 09:11 | disposition home or self-care (01) ==
LOC: HO.HMCC 08:43
PROVIDERS: PCP Internal Medicine; Visit Provider Internal Medicine
DX: Z23 Encounter for immunization (principal)

== ENCOUNTER 2025-06-22 15:24 | Outpatient (REF) | payer MEDICARE, MEDICAID, SELFPAY | END 2025-06-22 15:25 | disposition home or self-care (01) | LOC: HO.MAMMO 15:24 | PROVIDERS: PCP Internal Medicine; Visit Provider Internal Medicine | DX: Z12.31 Encounter for screening mammogram for malignant neoplasm of breast (principal) | CPT/HCPCS: 77063; 77067 ==

== ENCOUNTER → 2025-06-22 15:30 | Outpatient (BNV) | payer MEDICARE, MEDICAID, SELFPAY | PROVIDERS: PCP Internal Medicine; Visit Provider Internal Medicine | DX: Z12.31 Encounter for screening mammogram for malignant neoplasm of breast (principal) | CPT/HCPCS: 77063; 77067 ==

== ENCOUNTER 2025-08-15 09:50 | Outpatient (REF) | payer MEDICARE, MEDICAID, SELFPAY ==
--- NOTE | ~2025-08-15 | CT_ITS ---
CLINICAL HISTORY: R91.8 - Other nonspecific abnormal finding of lung field Exam: Nonenhanced CT chest with multiplanar reformats. Comparison: 08/14/2024 Findings: Lungs reveal stable small pulmonary nodules measuring 4 mm or less (for example, 4 mm subpleural right lower lobe nodule on 9; 273, 4 mm right lower lobe nodule on 9; 306, adjacent 3-4 mm right lower lobe nodule on 9; 309), and 4 mm right lower lobe subpleural nodule on 9; 366). No new or enlarging pulmonary nodules. No new consolidation. Airways are patent. [id number] centrilobular emphysematous changes appear stable. No new mediastinal or hilar masses or adenopathy. No pleural or pericardial effusions. Images below the diaphragms reveal no acute abnormalities. Stable 2.8 cm right breast cyst or low-density lesion (9; 178, 20 Hounsfield units density). Osseous structures reveal no destructive osseous lesions. Impression: 1. Stable small pulmonary nodules measuring up to 4 mm. No further imaging surveillance is warranted, based on nodule size and stability criteria. Plan: No further imaging surveillance of pulmonary nodules is warranted, based on nodule size and stability criteria. Further imaging should be based on clinical findings. Fleischner 2017 Guidelines were utilized to develop follow up recommendations for this patient. The full article can be viewed at: https://goo.gl/emmDIK Follow up strategies in solid nodules vary depending on patient risk assessment, with patient's classified as high or low risk. Low risk is associated with young age, smaller nodule size, regular margins, and location in an area other than the upper lobe. High risk factors include older age, heavy smoking, emphysema, carcinogen exposure, larger nodule size, irregular or spiculated margins, and upper lobe location. Nodule size and morphology are the dominant factors. Follow up of subsolid nodules (including ground glass and part solid opacities) is different when compared to solid nodules based on risk of malignancy and a longer doubling time in this group. Therefore when follow up is recommended, it is for a longer interval. Also in this group, recommendations may vary depending on a solitary lesion versus multiplicity of lesions. A calculator of estimated risk is available at: [email or web address]://goo.gl/[email or web address]# This document has been electronically signed by: Constantin Marte MD on 08/17/2025 18:33:21
== END 2025-08-15 09:51 | disposition home or self-care (01) ==
LOC: HO.CT 09:50
PROVIDERS: PCP Internal Medicine; Visit Provider Internal Medicine Pulmonary Disease
DX: R91.8 Other nonspecific abnormal finding of lung field (principal)
CPT/HCPCS: 71250